=== PATIENT | female | born 1940 ===

== ENCOUNTER 2025-07-15 08:16 | Outpatient (AMB) | payer OTHER, MEDICAID, SELFPAY ==
--- OUTSIDE RECORDS SUMMARY | 2025-07-11 16:00 | XMS_ITS | Encounter Summary ---
Author Organization [facility], Address [address] [address] Phone Care Team Providers Care Management Coordinator Name Role Phone Steven Olson MD Primary Care Provider [phone] Encounter Details Date Type Department Care Team (Late st Contact Info) Description 07/11/2025 4:00 PM EDT Office Visit [facility], [address] [place] [phone] Abram Bhatti MD [address] [place] [address] [place] [phone] Stage 3 chronic kidney disease, not otherwise specified (HCC) (Primary Dx); Hypertension Social History Tobacco Use Types Packs/Day Years Used Date Smoking Tobacco: Never Alcohol Use Standard Drinks/Week Comments No 0 (1 standard drink = 0.6 oz pur e alcohol) Comments Unknown Sex and Gender Information Value Date Recorded Sex Assigned at Not on file Legal Sex Female 4:34 PM EST Gender Identity Not on file Sexual Orientation Not on file documented as of this encounter Last Filed Vital Signs Vital Sign Reading Time Taken Comments Blood Pressure 160/60 07/11/2025 3:38 PM EDT Pulse - - Temperature - - Respiratory Rate - - Oxygen Saturation - - Inhaled Oxygen Concentration - - Weight - - Height - - Body Mass Index - - documented in this encounter H&P Notes * Abram Bhatti MD - 07/11/2025 4:00 PM EDT PATIENT: Steve Franco : 1940 ENCOUNTER: 07/11/2025 PCP: Steven Olson MD Edditim Franco is a 84 y.o. 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 HPI: Doing well overall. Had an episode of acute kidney injury probably on the basis of prerenal azotemia over the summer. This is completely resolved with her creatinine coming back down to 1.3 mg/dL onSeptember 30. She has normal electrolytes. She still has anemia with a hemoglobin of 10.4 but this is stable. Her blood pressure at home has been reasonably well-controlled although was high again inthe office today at 160/60. She has no headache or dizziness and denies chest pain or shortness of breath. She has had minimal edema primarily on the right. PAST MEDICAL HISTORY: Patient Active Problem List Diagnosis Date Noted ??? Cyst of kidney 12/31/2023 ??? Hypercholesterolemia 01/27/2022 ??? Disorder of kidney and/or ureter 09/07/2021 ??? 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 ??? Chronic kidney disease stage 3 (HCC) 12/17/2019 ??? Hypertensive disorder 12/17/2019 ??? Type 2 diabetes mellitus (HCC) 12/17/2019 ROS: As above and otherwise negative She has been watching her diet and restricting sodium. MEDICATIONS: Outpatient Encounter Medications as of 07/11/2025 Medication Sig Dispense Refill ??? albuterol HFA (PROVENTIL HFA;VENTOLIN HFA) 108 (90 Base) MCG/ACT inhaler ??? allopurinol (ZYLOPRIM) 100 MG tablet Take 200 mg by mouth 1 (one) time each day ??? amLODIPine (NORVASC) 5 MG tablet Take 5 mg by mouth 1 (one) time each day ??? aspirin 81 MG tablet Comments: Patient Notes: TAKE 1 TABLET BY MOUTH DAILY Duration: 90 ??? atorvastatin (LIPITOR) 20 MG tablet Take 20 mg by mouth 1 (one) time each day ??? candesartan (ATACAND) 32 MG tablet Take 1 tablet (32 mg total) by mouth 1 (one) time each day 30 tablet 11 ??? cetirizine (ZyrTEC) 10 MG tablet Take 10 mg by mouth 1 (one) time each day if needed ??? Diclofenac Sodium 1 % gel APPLY 4 GRAMS FOUR TIMES A DAY NEEDED TO LEFT BUTTOCK ??? escitalopram (LEXAPRO) 10 MG tablet Take 10 mg by mouth 1 (one) time each day ??? fluticasone (FLONASE) 50 MCG/ACT nasal spray USE 1 SPRAY IN EACH NOSTRIL 2 TIMES A DAY, IF NEEDED. ??? mometasone (ELOCON) 0.1 % cream APPLY TWO TIMES A DAY ON RASH FOR 10 DAYS ??? omeprazole (PriLOSEC) [address] capsule Take 20 mg by mouth 1 (one) time each day ??? spironolactone (ALDACTONE) 25 MG tablet Take 25 mg by mouth 1 (one) time each day No facility-administered encounter medications on file as of 07/11/2025. PHYSICAL EXAM: BP 160/60 Constitutional: No apparent distress Cardiovascular: No JVD elevation; no rub; regular Pulmonary/Chest: No rales; no wheeze Abdominal: Soft and non-tender. Extremities: Edema trace LABS: Chemistry Lab Units 06/28/25 0819 06/28/25 0818 05/09/25 0817 04/28/25 1517 04/26/25 1708 02/24/25 0738 12/13/24 1204 10/15/24 0629 10/14/24 1414 08/03/24 1013 08/03/24 1013 08/12/23 0808 CREATININE mg/dL -- 1.35* 1.44* -- 1.81* 1.48* 1.4* 1.29* 1.34* < > 1.56* 1.1* BUN mg/dL -- 24 29* -- 24 33* 26* 23 25 < > 40* 16 POTASSIUM mmol/L -- 5.0 5.0 -- 5.3 5.3 -- 4.4 4.5 < > 5.4 4.0 SODIUM mmol/L -- 136 128* -- 135 139 -- 136 135 < > 129* 140 CO2 mmol/L -- 22 20 -- 27 26 -- 26 28 < > 27 31* CHLORIDE mmol/L -- 103 93* -- 105 109 -- 106 103 < > 96 102 ALBUMIN g/dL -- 4.1 4.0 -- -- -- -- -- 3.8 -- 3.9 4.1 EGFRNAFR ML/MIN/1.73 M2 -- -- -- -- -- -- -- -- -- -- -- 50 HEMOGLOBIN A1C % -- -- -- 6.4 -- -- -- -- -- -- -- -- WBC AUTO x10E3/uL 4.7 -- 6.1 -- -- -- -- -- -- -- -- 5.6 HEMATOCRIT % 35.7 -- 33.6* -- -- -- -- -- -- -- -- 39.6 HEMOGLOBIN g/dL 10.4* -- 10.7* -- -- -- -- -- -- -- -- 11.9 PLATELETS AUTO x10E3/uL 182 -- 210 -- -- -- -- -- -- -- -- 199 < > = values in this interval not displayed. Bone Mineral Lab Units 06/28/25 0818 05/09/25 0817 04/26/25 1708 02/24/25 0738 10/15/24 0629 10/14/24 1414 08/03/24 1013 08/03/24 1013 08/12/23 0808 CALCIUM mg/dL 9.1 9.6 9.3 9.4 9.8 9.9 < > 10.2 10.5 PHOSPHORUS mg/dL 3.1 3.3 -- -- -- -- -- 3.9 3.3 ALK PHOS unit/L -- -- -- -- -- 118 -- -- -- PTH pg/mL 79* -- -- -- -- -- -- -- -- < > = values in this interval not displayed. DOCUMENTATION REVIEW: I have reviewed the applicable outside notes located in the chart, in [facility] and in Care Everywhere. SUMMARY: Based on the above findings, my interpretation of the available data, and my best efforts to reconcile the active medications, the following problems/diagnoses with recommendations for any further testing, treatment options, and follow-up are provided for your review: Chronic and Active Issues: 1. Stage 3 chronic kidney disease, not otherwise specified (HCC) 2. Hypertension Mrs. 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 Her cyst has now been stable for multiple years and likely no longer requires her regular follow-up. Her kidney function remains stable with a creatinine 1.3 mg/dl. Her blood pressure has been stable at home. It was high in the office. Have asked her to continue to work on her diet, exercise, weight loss. This has helped her in the past. I made no changes in her medicationsfor now. If her blood pressure is high at home she will give me a call and we can make adjustments accordingly. Otherwise, I will see her back in 4 to 6 months. Abram Bhatti MD documented in this encounter Plan of Treatment Upcoming Encounters Date Type Department Care Team (Late st Contact Info) Description 11/25/2025 2:00 PM EST Office Visit [facility], [address] [place] [address] Abram Bhatti MD [address] [facility] [place] [phone] documented as of this encounter Visit Diagnoses Diagnosis Stage 3 chronic kidney disease, not otherwise specified (HCC)- Primary Hypertension documented in this encounter Care Teams Management Coordinator Relationship Specialty Start Date End Date Steven Olson MD [address] [place] [id number] PCP - General 08/03/19 documented as of this encounter
--- OUTSIDE RECORDS SUMMARY | 2025-07-15 08:32 | XMS_ITS | Continuity of Care Document ---
Author Name [facility], Medical Address [address] [place] [address] Organization Unknown Address [address] [place] [address] Medications No known medications Problems No known problems
--- OUTSIDE RECORDS SUMMARY | 2025-07-15 08:32 | XMS_ITS | Encounter Summary ---
Author Organization [facility] Address [address] [place] [address] Care Team Providers Care Mesh Worker Name Role Phone Yolanda Parrish Primary Care Provider + Encounter Details Date Type Department Care Team (Late st Contact Info) Description 06/16/2025 Telephone Internal Medicine - [place] [address] [facility] [address] [place] [phone] Yolanda Parrish PA [address] [facility] [address] [place] [address] Social History Tobacco Use Types Packs/Day Years Used Date Smoking Tobacco: Former Cigarettes Q uit: 01/18/1999 Smokeless Tobacco: Never Alcohol Use Standard Drinks/Week Comments Not Currently 0 (1 standard drink = 0.6 oz pur e alcohol) Interpersonal Safety Answer Date Record ed Physical Abuse Unrecognized value 10/14/2024 Verbal Abuse Unrecognized value 10/14/2024 Comments No Sex and Gender Information Value Date Recorded Sex Assigned at Female 10/14/2024 3:37 PM EST Legal Sex Female 10:03 AM EST Gender Identity Female 10/14/2024 3:37 PM EST Sexual Orientation Choose not to disclose 2024 3:37 PM EST documented as of this encounter Functional Status * Are you deaf or do you have serious difficulty hearing? Answer Date of Assessment Author No 04/26/2025 5:00 PM EDT Antonette Mcclain RN * Are you blind or do you have serious difficulty seeing, even when wearing glasses? Answer Date of Assessment Author No 04/26/2025 5:00 PM EDT Antonette Mcclain RN * Do you have serious difficulty walking or climbing stairs? Answer Date of Assessment Author No 04/26/2025 5:00 PM EDT Antonette Mcclain RN * Do you have serious difficulty dressing or bathing? Answer Date of Assessment Author No 04/26/2025 5:00 PM EDT Antonette Mcclain RN * Because of a physical, mental, or emotional condition, do you have serious difficulty doing errandsalone such as visiting the doctor? Answer Date of Assessment Author No 04/26/2025 5:00 PM EDT Antonette Mcclain RN documented as of this encounter Mental Status * Because of a physical, mental, or emotional condition, do you have serious difficulty concentrating, remembering, or making decisions? (5 years old or older) Answer Entry Date Author No 04/26/2025 5:00 PM EDT Antonette Mcclain RN documented in this encounter Plan of Treatment Upcoming Encounters Date Type Department Care Team (Late st Contact Info) Description 07/19/2025 10:00 AM EDT Office Visit Pulmonology - [place] [address] [phone] Fabio Marquez MD [address] [place] [phone] 09/01/2025 10:30 AM EST Office Visit Internal Medicine - [place] [address] [phone] Yolanda Parrish PA [address] [facility] 200 [place] [address] 09/05/2025 7:40 AM EST Office Visit [facility] [address] [facility] [address] [place] [phone] Jaguar Smith NP [address] [place] [address] 12/21/2025 10:00 AM EDT Ancillary Procedure [facility] [address] [facility] 101 [place] [address] 01/23/2026 8:30 AM EDT Office Visit Vascular Surgery - [place] [address] [facility] [address] [place] [address] Pelon Joshi MD [address] [place] [phone] 04/07/2026 10:00 AM EDT Office Visit [facility] H[facility]ology Oncology [address] [place] [phone] Jennifer-Quinn Heredia MD [address] [place] [phone] documented as of this encounter Visit Diagnoses Not on filedocumented in this encounter Care Teams Mesh Worker Relationship Specialty Start Date End Date Yolanda Parrish PA [address] [facility] 200 [place] [address] PCP - General Primary Care 08/03/24 documented as of this encounter
--- OUTSIDE RECORDS SUMMARY | 2025-07-15 08:32 | XMS_ITS | Clinical Summary ---
Author Organization [facility], Address [address] [place] [address] Phone Care Team Providers Care Fitting Room Inspector Name Role Phone Steven Olson MD Primary Care Provider [phone] Allergies No known active allergies Medications aspirin 81 MG tablet Comments: Patient Notes: TAKE 1 TABLET BY MOUTH DAILY Duration: 90 Active escitalopram (LEXAPRO) 10 MG tablet Take 10 mg by mouth 1 (one) time each day 08/27/2021 Active Diclofenac Sodium 1 % gel APPLY 4 GRAMS FOUR TIMES A DAY NEEDED TO LEFT BUTTOCK 07/09/2021 Active amLODIPine (NORVASC) 5 MG tablet Take 5 mg by mouth 1 (one) time each day 09/06/2021 Active allopurinol (ZYLOPRIM) 100 MG tablet Take 200 mg by mouth 1 (one) time each day 12/25/2021 Active cetirizine (ZyrTEC) 10 MG tablet Take 10 mg by mouth 1 (one) time each day if needed 12/08/2021 Active fluticasone (FLONASE) 50 MCG/ACT nasal spray USE 1 SPRAY IN EACH NOSTRIL 2 TIMES A DAY, IF NEEDED. 07/02/2022 Active albuterol HFA (PROVENTIL HFA;VENTOLIN HFA) 108 (90 Base) MCG/ACT inhaler 08/11/2022 Active mometasone (ELOCON) 0.1 % cream APPLY TWO TIMES A DAY ON RASH FOR 10 DAYS 06/03/2023 Active omeprazole (PriLOSEC) [address] capsule Take 20 mg by mouth 1 (one) time each day 07/04/2023 Active atorvastatin (LIPITOR) 20 MG tablet Take 20 mg by mouth 1 (one) time each day Active spironolactone (ALDACTONE) 25 MG tablet Take 25 mg by mouth 1 (one) time each day Active candesartan (ATACAND) 32 MG tablet Take 1 tablet (32 mg total) by mouth 1 (one) time each day 30 tablet 11 10/05/2024 Active Active Problems Problem Noted Date Diagnosed Date Cyst of kidney 12/31/2023 Hypercholesterolemia 01/27/2022 Disorder of kidney and/or ureter 09/07/2021 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 Chronic kidney disease stage 3 12/17/2019 Hypertensive disorder 12/17/2019 Type 2 diabetes mellitus 12/17/2019 Resolved Problems Problem Noted Date Diagnosed Date Resolved Date Malignant tumor of breast 01/27/2022 Overview (01/27/2022): stage II-A infiltrating ductal CA; ER and NM (+) Morbid obesity 01/27/2022 01/27/2022 Tubular adenoma, no ICD-O subtype 01/27/2022 01/27/2022 Encounters Date Type Department Care Team Description 07/11/2025 4:00 PM EDT Office Visit [facility] [address] [place] [address] Abram Bhatti MD Stage 3 chronic kidney disease, not otherwise specified (HCC) (Primary Dx); Hypertension 06/28/2025 Orders Only [facility] [address] [place] [address] Dayna Samuel MA Hypertension (Primary Dx); Stage 3 chronic kidney disease, not otherwise specified (HCC); Albuminuria, not otherwise specified 05/12/2025 Orders Only [facility] [place] [address] [place] [phone] Abram Bhatti MD Chronic kidney disease stage 3 (HCC) (Primary Dx); Hypertension 05/11/2025 Telephone [facility] [address] [place] [phone] Dayna Samuel MA 05/06/2025 Orders Only [facility] [address] [place] [phone] Abram Bhatti MD Chronic kidney disease stage 3 (HCC) (Primary Dx); Hypertensive disorder 05/05/2025 Telephone [facility] [place], [address] [place] [address] Dayna Samuel MA from Last 3 Months Family History Medical History Relation Comments Heart disease Mother Cancer Sibling BREAST CANCER Heart disease Sibling sister Relation Status Comments Father Mother Sibling Social History Tobacco Use Types Packs/Day Years Used Date Smoking Tobacco: Never Alcohol Use Standard Drinks/Week Comments No 0 (1 standard drink = 0.6 oz pur e alcohol) Comments Unknown Sex and Gender Information Value Date Recorded Sex Assigned at Not on file Legal Sex Female 4:34 PM EST Gender Identity Not on file Sexual Orientation Not on file Last Filed Vital Signs Vital Sign Reading Time Taken Comments Blood Pressure 160/60 07/11/2025 3:38 PM EDT Pulse - - Temperature - - Respiratory Rate - - Oxygen Saturation - - Inhaled Oxygen Concentration - - Weight 97.5 kg (215 lb) 06/08/2018 12:00 PM EDT Height 167.6 cm (5' 6 ) 06/08/2018 12:00 PM EDT Body Mass Index 34.7 06/08/2018 12:00 PM EDT Plan of Treatment Upcoming Encounters Date Type Department Care Team (Late st Contact Info) Description 11/25/2025 2:00 PM EST Office Visit [facility] [place], [address] [place] [address] Abram Bhatti MD [address] [place] [phone] Health Maintenance Due Date Last Done Comments Pneumococcal Vaccine: 50+ Years (1 of 2 - PCV) 1959 Diabetes: Ophthalmology Exam 12/17/2019 Diabetes: Pedal Pulse Checked 12/17/2019 Diabetes: Sensory Foot Exam 12/17/2019 Diabetes: Visual Foot Exam 12/17/2019 Influenza Vaccine (#1) 2025 07/13/2021 Diabetes: Hemoglobin A1C 07/29/2025 025, 04/28/2025, 09/08/2017 Hepatitis B Vaccine Aged Out No longe r eligible based on patient's age to complete this topic Procedures Procedure Name Priority Date/Time Associated Diagnosis Comments PROTEIN / CREATININE RATIO, URINE Routine 06/28/2025 8:19 AM EDT CBC AND DIFFERENTIAL Routine 06/28/2025 8:19 AM EDT Hypertension Stage 3 chronic kidney disease, not otherwise specified (HCC) Albuminuria, not otherwise specified URINE ALBUMIN / CREATININE RATIO Routine 06/28/2025 8:18 AM EDT Hypertension Stage 3 chronic kidney disease, not otherwise specified (HCC) Albuminuria, not otherwise specified RENAL FUNCTION PANEL Routine 06/28/2025 8:18 AM EDT Hypertension Stage 3 chronic kidney disease, not otherwise specified (HCC) Albuminuria, not otherwise specified KAPPA/LAMBDA FREE LT CHAINS W/RATIO Routine 06/28/2025 8:18 AM EDT Chronic kidney disease stage 3 (HCC) Hypertension IMMUNOFIXATION ELECTROPHORESIS Routine 06/28/2025 8:18 AM EDT Chronic kidney disease stage 3 (HCC) Hypertension KALEY, URINE Routine 06/28/2025 8:18 AM EDT Chronic kidney disease stage 3 (HCC) Hypertension URINALYSIS WITH MICROSCOPIC Routine 06/28/2025 8:18 AM EDT Chronic kidney disease stage 3 (HCC) Hypertension PTH, INTACT Routine 06/28/2025 8:18 AM EDT Chronic kidney disease stage 3 (HCC) Hypertension MICROSCOPIC EXAMINATION - DO NOT USE Routine 06/28/2025 8:18 AM EDT PROTEIN / CREATININE RATIO, URINE Routine 05/09/2025 8:29 AM EDT IRON PANEL (FE, TIBC, TSAT) Routine 05/09/2025 8:17 AM EDT Chronic kidney disease stage 3 (HCC) Hypertensive disorder FERRITIN Routine 05/09/2025 8:17 AM EDT Chronic kidney disease stage 3 (HCC) Hypertensive disorder CBC Routine 05/09/2025 8:17 AM EDT Chronic kidney disease stage 3 (HCC) Hypertensive disorder RENAL FUNCTION PANEL Routine 05/09/2025 8:17 AM EDT Chronic kidney disease stage 3 (HCC) Hypertensive disorder LAB CLINICAL REHABILITATION LIAISON Routine 09/08/2017 12:00 AM EST from Last 3 Months or Most Recently Relevant to Health Maintenance Results * Protein, Total, Random Urine w/Creatinine (Protein/Creat Ratio) (06/28/2025 8:19 AM EDT) Only the most recent of2 resultswithin the time period is included. Creatinine, Ur 132.8 Not Estab. mg/dL [facility] Protein, Ur 23.0 Not Estab. mg/dL [facility] Urine Protein/Creatin ine Ratio 173 0 - 200 mg/g creat [facility] 06/28/2025 8:19 AM EDT 06/28/2025 us Abram Bhatti MD LAB URINE ORDERABLES Final Result [facility] [address] [place] [address] * (ABNORMAL) CBC and Differential (06/28/2025 8:19 AM EDT) WBC 4.7 3.4 - 10.8 x10E3/uL [facility] RBC 3.45(L) 3.77 - 5.28 x10E6/uL [facility] Hemoglobin 10.4(L) 11.1 - 15.9 g/dL [facility] Hematocrit 35.7 34.0 - 46.6 % [facility] MCV 104(H) 79 - 97 fL [facility] MCH 30.1 26.6 - 33.0 pg [facility] MCHC 29.1(L) 31.5 - 35.7 g/dL [facility] RDW 13.9 11.7 - 15.4 % [facility] Platelets 182 150 - 450 x10E3/uL [facility] Neutrophils Relative 43 Not Estab. % [facility] Lymphocytes Relative 40 Not Estab. % [facility] Monocytes 12 Not Estab. % [facility] Eosinophils Relative 4 Not Estab. % [facility] Basophils Relative 1 Not Estab. % [facility] Neutrophils Absolute 2.0 1.4 - 7.0 x10E3/uL [facility] Lymphocytes Absolute 1.9 0.7 - 3.1 x10E3/uL [facility] Monocytes Absolute 0.5 0.1 - 0.9 x10E3/uL [facility] Eosinophils Absolute 0.2 0.0 - 0.4 x10E3/uL [facility] Basophils Absolute 0.0 0.0 - 0.2 x10E3/uL [facility] Immature Granulocytes 0 Not Estab. % [facility] Immature Grans (Absolute) 0.0 0.0 - 0.1 x10E3/uL [facility] Blood Venous blood / Unknown 06/28/2025 8:19 AM EDT 06/28/2025 Abram Bhatti MD LAB BLOOD ORDERABLES Final Result [facility] [address] [place] [address] * Urine Immunofixation Electrophoresis (06/28/2025 8:18 AM EDT) KALEY Interpretation:U Comment [facility] Comment: The immunofixation pattern appears unremarkable. Evidence of monoclonal protein is not apparent. Urine 06/28/2025 8:18 AM EDT 06/28/2025 Abram Bhatti MD LAB URINE ORDERABLES Final Result Performing Organization Address City/[facility]/ZIP Co de Phone Number [facility] [address] [place] [address] * Microscopic Examination (06/28/2025 8:18 AM EDT) WBC, Urine None seen 0 - 5 /hpf [facility] RBC, Urine None seen 0 - 2 /hpf [facility] Squamous Epithelial, Urine 0-10 0 - 10 /hpf [facility] Casts None seen None seen /lpf [facility] Bacteria, Urine None seen None seen/Few [facility] 06/28/2025 8:18 AM EDT 06/28/2025 Result [facility] Abram Bhatti MD LAB MICROBIOLOGY - GENERAL ORDERABLES Final Result Performing Organization Address [facility] Co de Phone Number [facility] [address] [place] [address] * (ABNORMAL) Serum free light chains (06/28/2025 8:18 AM EDT) Free [place] Lt Chains, S 35.3(H) 3.3 - 19.4 mg/L [facility] Free Lambda Lt Chains, S 30.5(H) 5.7 - 26.3 mg/L [facility] Free [place]/Lambda Ratio 1.16 0.26 - 1.65 [facility] Blood Venous blood / Unknown 06/28/2025 8:18 AM EDT 06/28/2025 Abram Bhatti MD LAB BLOOD ORDERABLES Final Result Performing Organization Address [facility] de Phone Number [facility] [address] [place] [address] * (ABNORMAL) Urine Albumin / Creatinine Ratio (06/28/2025 8:18 AM EDT) Creatinine, Ur 134.1 Not Estab. mg/dL [facility] Albumin, Urine 76.5 Not Estab. ug/mL [facility] Albumin/Creatin ine Ratio 57(H) 0 - 29 mg/g creat [facility] Comment: Normal: 0 - 29 Moderately increased: 30 - 300 Severely increased: >300 Urine Urine specimen obtained by clean catch procedure / Unknown 06/28/2025 8:18 AM EDT 06/28/2025 Abram Bhatti MD LAB URINE ORDERABLES Final Result Performing Organization Address City/[facility]/ZIP Co de Phone Number [facility] [address] [place] [address] * (ABNORMAL) Urinalysis with microscopic (06/28/2025 8:18 AM EDT) Pathologist [facility] Specific Noonan, Urine 1.016 1.005 - 1.030 [facility] pH Urine 6.0 5.0 - 7.5 [facility] [phone] Color, Urine Yellow Yellow [facility] [phone] Appearance Urine Clear Clear [facility] WBC Esterase Urine Negative Negative [facility] Protein, Ur 1+(A) Negative/Tra ce [facility] Glucose, Ur Negative Negative [facility] [phone] Ketones, Urine Negative Negative [facility] Blood Urine Negative Negative [facility] Bilirubin Urine Negative Negative [facility] [phone] Urobilinogen Urine 0.2 0.2 - 1.0 mg/dL [facility] Nitrite, Urine Negative Negative [facility] Microscopic Examination See below: [facility] Comment:Microscopic was alia cated and was performed. Urine Urine specimen obtained by clean catch procedure / Unknown 06/28/2025 8:18 AM EDT 06/28/2025 us Abram Bhatti MD LAB URINE ORDERABLES Final Result [facility] [address] [place] [address] * Immunofixation, Serum (06/28/2025 8:18 AM EDT) IgG 1,229 586 - 1,602 mg/dL [facility] IgA 315 64 - 422 mg/dL [facility] IgM 35 26 - 217 mg/dL [facility] Immunofixation Result, Serum Comment [facility] Comment: The immunofixation pattern appears unremarkable. Evidence of monoclonal protein is not apparent. Blood Venous blood / Unknown 06/28/2025 8:18 AM EDT 06/28/2025 Abram Bhatti MD LAB BLOOD ORDERABLES Final Result [facility] [address] [place] [address] * (ABNORMAL) PTH, intact (06/28/2025 8:18 AM EDT) PTH 79(H) 15 - 65 pg/mL [facility] Blood Venous blood / Unknown 06/28/2025 8:18 AM EDT 06/28/2025 Abram Bhatti MD LAB BLOOD ORDERABLES Final Result Performing Organization Address City/[facility]/ZIP Co de Phone Number [facility] [address] [place] [address] * (ABNORMAL) Renal Function Panel (06/28/2025 8:18 AM EDT) Only the most recent of2 resultswithin the time period is included. Glucose 92 70 - 99 mg/dL [facility] BUN 24 8 - 27 mg/dL [facility] Creatinine 1.35(H) 0.57 - 1.00 mg/dL [facility] eGFR CKD-EPI CR 2020 39(L) >59 mL/min/1.7 3 [facility] BUN/Creatinine Ratio 18 12 - 28 [facility] Sodium 136 134 - 144 mmol/L [facility] Potassium 5.0 3.5 - 5.2 mmol/L [facility] Chloride 103 96 - 106 mmol/L [facility] Bicarbonate (CO2) 22 20 - 29 mmol/L [facility] Calcium 9.1 8.7 - 10.3 mg/dL [facility] Albumin 4.1 3.7 - 4.7 g/dL [facility] Phosphorus 3.1 3.0 - 4.3 mg/dL [facility] Blood Venous blood / Unknown 06/28/2025 8:18 AM EDT 06/28/2025 Abram Bhatti MD LAB BLOOD ORDERABLES Final Result [facility] [address] [place] [address] * Iron Panel (Fe, TIBC, TSAT) (05/09/2025 8:17 AM EDT) TIBC 290 250 - 450 ug/dL [facility] UIBC 226 118 - 369 ug/dL [facility] Iron 64 27 - 139 ug/dL [facility] Iron Saturation (TSat) 22 15 - 55 % [facility] Blood Venous blood / Unknown 05/09/2025 8:17 AM EDT 05/09/2025 Abram Bhatti MD LAB BLOOD ORDERABLES [facility] [address] [place] [address] * (ABNORMAL) CBC (05/09/2025 8:17 AM EDT) WBC 6.1 3.4 - 10.8 x10E3/uL [facility] RBC 3.36(L) 3.77 - 5.28 x10E6/uL [facility] Hemoglobin 10.7(L) 11.1 - 15.9 g/dL [facility] Hematocrit 33.6(L) 34.0 - 46.6 % [facility] MCV 100(H) 79 - 97 fL [facility] MCH 31.8 26.6 - 33.0 pg [facility] MCHC 31.8 31.5 - 35.7 g/dL [facility] RDW 12.9 11.7 - 15.4 % [facility] Platelets 210 150 - 450 x10E3/uL [facility] Blood Venous blood / Unknown 05/09/2025 8:17 AM EDT 05/09/2025 Abram Bhatti MD LAB BLOOD ORDERABLES Final Result [facility] [address] [place] [address] * (ABNORMAL) Ferritin (05/09/2025 8:17 AM EDT) Pathologist [facility] Ferritin 507(H) 15 - 150 ng/mL [facility] Blood Venous blood / Unknown 05/09/2025 8:17 AM EDT 05/09/2025 Abram Bhatti MD LAB BLOOD ORDERABLES Final Result [facility] [address] [place] [address] from Last 3 Months Insurance [place] Care Teams Fitting Room Inspector Relationship Specialty Start Date End Date Steven Olson MD [address] [place] [address] PCP - General 08/03/19
--- OUTSIDE RECORDS SUMMARY | 2025-07-15 08:32 | XMS_ITS | Encounter Summary ---
Author Organization [facility] Address [address] [place] [address] Care Team Providers Care Environmental Laboratory Technician Name Role Phone Yolanda Parrish Primary Care Provider + Reason for Referral * Consultation (Routine) - Authorized Specialty Diagnoses / Procedures Referred By Contbenjie t Referred To Contact Pulmonary Disease / Pulmonology Diagnoses Other fatigue Yolanda Parrish PA [address] [address] Phone: tel: fax: Fabio Marquez MD [address] [address] Phone: tel: fax: Referral ID Status Reason Start Date Expiration Date Visits Requested Visits Authorized [id number] Authorized Specialty Services Required 07/13/2026 12 12 Reason for Visit * Reason Onset Date Comments Referral/ Pulmonology 07/13/2025 Encounter Details Date Type Department Care Team ([facility] st Contact Info) Description 07/13/2025 Telephone Internal Medicine - [place] [address] [phone] Yolanda Parrish PA [address] [facility] [address] [place] [address] Social History Tobacco Use Types Packs/Day Years [...] 10:00 AM EDT Office Visit Pulmonology - [place] 175 [facility] [address] [place] [phone] Fabio Marquez MD [address] [place] [phone] 09/01/2025 10:30 AM EST Office Visit Internal Medicine - [place] 175 [facility] [address] [place] [phone] Yolanda Parrish PA 175 [facility] [address] [place] [address] 09/05/2025 7:40 AM EST Office Visit [facility] - [facility] 154 [address] [facility] [address] [place] [phone] Jaguar Smith NP [address] [place] [address] 12/21/2025 10:00 AM EDT Ancillary Procedure [facility] - [facility] 101 300 [facility] 101 [place] [phone] 01/23/2026 8:30 AM EDT Office Visit Vascular Surgery - [place] 300 [facility] [address] [place] [address] Pelon Joshi MD [address] [place] [phone] 04/07/2026 10:00 AM EDT Office Visit [facility] Hematology Oncology [address] [place] [phone] Quinn Seals MD [address] [place] [phone] Scheduled Referrals Name Type Priority Associated Diagnoses Order Schedule Ambulatory referral to Pulmonology Outpatient Referral Routine Other fatigue Expected: 07/13/2025, Expires: 07/13/2026 documented as of this encounter Visit Diagnoses Diagnosis Other fatigue- Primary documented in this encounter Care Teams Environmental Laboratory Technician Relationship Specialty Start Date End Date Yolanda Parrish PA [address] [address] PCP - General Primary Care 08/03/24 documented as of this encounter
--- OUTSIDE RECORDS SUMMARY | 2025-07-15 08:33 | XMS_ITS | Encounter Summary ---
Author Organization [facility], Address [address] [facility] [place] [address] Phone Care Team Providers Care Steel Placer Name Role Phone Steven Olson MD Primary Care Provider [phone] Encounter Details Date Type Department Care Team (Late Contact Info) Description 08/04/2024 Documentation Only [facility] [address] [place] [address] [place], [place] [address] [place] [address] Social History Tobacco Use Types Packs/Day Years [...] on file documented as of this encounter Plan of Treatment Upcoming Encounters Date Type Department Care Team (Late Contact Info) Description 11/25/2025 2:00 PM EST Office Visit [facility] [address] [place] [address] Abram Bhatti MD [address] [place] [address] documented as of this encounter Visit Diagnoses Not on filedocumented in this encounter Care Teams Steel Placer Relationship Specialty Start Date End Date Steven Olson MD [address] [place] [address] PCP - General 08/03/19 documented as of this encounter
--- OUTSIDE RECORDS SUMMARY | 2025-07-15 08:33 | XMS_ITS | Encounter Summary ---
Author Organization [facility], Address [address] [facility] [place] [address] Phone Care Team Providers Care Master Pilot Name Role Phone Steven Olson MD Primary Care Provider [phone] Encounter Details Date Type Department Care Team (Late Contact Info) Description 08/06/2024 Documentation Only [facility] [address] [place] [address] [place] [address] [place] [address] Social History Tobacco Use Types [...] Visit [facility] [address] [place] [address] Abram Bhatti MD [address] [facility] [address] [place] [address] documented as of this encounter Visit Diagnoses Not on filedocumented in this encounter Care Teams Master Pilot Relationship Specialty Start Date End Date Steven Olson MD [address] [place] [address] PCP - General 08/03/19 documented as of this encounter
--- OUTSIDE RECORDS SUMMARY | 2025-07-15 08:33 | XMS_ITS | Patient Health Record ---
Author Organization Merged With [facility] Kira [place] Address [address] [place] [address] Care Team Providers Care Digital Archivist Name Role Phone Wesley ESQUEDA, Steven Primary Care Provider Unavailab le Agustina Otoole Unavailable [phone] Allergies Allergen (clinical drug ingredient) Drug/Non Drug Allergy documented on EMR Reaction Allergy Type Onset Date Status Shrimp Flavor Unknown Drug Allergy Act ondina Seasonal IC Unknown Drug Allergy Activ e Shellfish (FN) Shellfish-derived Products Unknown Drug Allergy Active Results Component Value Reference Range Notes HEMOGLOBIN A1C (GLYCOHEMOGLO BIN) Reviewed date:12/10/2024 09:25:12 AM Interpretation: Performing Lab: Notes/Report: HEMOGLOBIN A1C % (HH) 6.5 HEMOGLOBIN A1C (GLYCOHEMOGLO BIN) Reviewed date:06/08/2025 09:09:21 AM Interpretation: Performing Lab: Notes/Report: HEMOGLOBIN A1C % (HH) 6.4 Reason For Referral Diagnosis 1 Type 2 diabetes jacquelyn itus with diabetic polyneuropathy (E11.42) Diagnosis 2 Tinea unguium (B35.1 ) Diagnosis 3 Pain in Limb (729.5) Diagnosis 4 Other viral warts (B 07.8) Diagnosis 5 Hammer toe (735.4) Diagnosis 6 Ingrowing nail (L60. 0) Referring Provider First Name Steven Referring Provider Last Name Wesley Referred Organization [facility] Vic[facility] Referred Provider Agustina Otoole Referred Address [address] [facility],[place], [place],[address], Referred Provider Specialty Podiatry Referral Priority Routine Medications Medication SIG (Take, Route, Frequency, Duration) Notes Start Date End Date Status Allopurinol 100 MG 1 tablet Orally Once a day Active hydroCHLOROthiazide Not-Taking Aspirin 81 mg Active Simvastatin 20 MG TAKE ONE TABLET(S) EVERY DAY Oral; Duration: 30 Not-Taking Eucerin . as directed Externally bid; Duration: 30 days Not-Taking Spironolactone Activ e predniSONE 20 MG 2 tablets with food or milk Orally Once a day; Duration: 5 days 11/27/2021 Not-Taking Atorvastatin Calcium 20 MG 1 tablet Oral ly Once a day Active Extra Depth Orthopedic Shoes (1 Pair) with Customized Heat Molded Multidensity Innersoles (3 Pair) as directed Dx: NIDDM/Polyneuropathy (E11.42), Hammertoe Foot Deformity (M20.41,M20.42), Preulcerative Skin Lesion(s) (L85.1 12/10/2024 Active Loratadine Active amLODIPine Besylate 5 MG 1 tablet Orally Once a day Active Vitamin D Active Cetirizine HCl Activ e Aromasin Not-Taking Candesartan Cilexetil Active Escitalopram Oxalate 10 MG 1 tablet Oral ly Once a day Not-Taking Aspirin 81 81 MG 1 tablet Orally Once a day Active glipiZIDE Not-Taking Immunizations Vaccine Route Administration Date Status Comme nts Influenza Unknown 09/12/2015 Refused Influenza Unknown 09/03/2016 Refused Influenza Unknown 09/02/2017 Refused Influenza Unknown 09/08/2018 Refused Influenza Unknown 11/05/2019 Refused Influenza Unknown 07/13/2021 Administered Influenza Unknown 01/30/2022 Refused Influenza Unknown 03/09/2025 Refused Pneumococcal Unknown 09/12/2015 Refused COVID-19 Pfizer BioNTech Vaccine Unknown 07/16/2021 Administered 1st vaccine 11/09/20 2nd dose: 11/30/2020 Social History Tobacco Use: Social History Observation Description Date Details (start date - stop date) Never Smoker NA - NA Tobacco use other than smoking: Question Answer Notes Are you an other tobacco user? No Tobacco Control (Standard) Question Answer Notes Tobacco use: Nonsmoker Additional Findings: Tobacco non-user Current no nsmoker AUDIT-C (Standard) Question Answer Notes Did you have a drink containing alcohol in the p ast year? No Points 0 Interpretation Negative Section Notes: Flu shot- pt denied Eye Exam February 2015 Flu shot- pt denied Eye Exam February 2015 Flu shot- pt denied Eye Exam February 2015 Flu shot- pt denied Eye Exam February 2015 Flu shot- pt denied Eye Exam February 2015 Flu shot- pt denied Eye Exam February 2015 Flu shot- pt denied Eye Exam February 2015 Flu shot- pt denied Eye Exam February 2015 Flu shot- pt denied Eye Exam February 2015 Flu shot- pt denied Eye Exam February 2015 Flu shot- pt denied Eye Exam February 2015 Flu shot- pt denied Eye Exam February 2015 Flu shot- pt denied Eye Exam February 2015 Flu shot- pt denied Eye Exam February 2015 Flu shot- pt denied Eye Exam February 2015 Flu shot- pt denied Eye Exam February 2015 Flu shot- pt denied Eye Exam February 2015 Flu shot- pt denied Eye Exam February 2015 Flu shot- pt denied Eye Exam February 2015 Flu shot- pt denied Eye Exam February 2015 Flu shot- pt denied Eye Exam February 2015 Flu shot- pt denied Eye Exam February 2015 Flu shot- pt denied Eye Exam February 2015 Flu shot- pt denied Eye Exam February 2015 Problems Problem Type SNOMED Code ICD Code Onset Dates Problem Status W/U Status Risk Notes Problem Polyneuropathy due to type 2 diabetes mellitus (542102426) Type 2 diabetes mellitus with diabetic polyneuropathy (E11.42) Active confirmed Vital Signs Blood pressure diastolic 60 mm Hg 06/08/2025 Height 5 ft 6 in in 06/08/2025 Blood pressure systolic 125 mm Hg 06/08/2025 Weight 205 lbs 06/08/2025 BMI 33.08 kg/m2 06/08/2025 Procedures Procedure Date Ordered Date Performed Result Body Sit e 82345-KGZJCQM NAIL, 6 OR MORE 09/10/2024 N/A 81673-QLDR SKIN LESIONS, OVER 4 09/10/2024 N/A 65262-SPQCTBP NAIL, 6 OR MORE 12/10/2024 N/A 69180-ASVM SKIN LESIONS, OVER 4 12/10/2024 N/A 08844-QIUFWGP NAIL, 6 OR MORE 03/09/2025 N/A 37493-ARUM SKIN LESIONS, OVER 4 03/09/2025 N/A 26174-LXMDQJK NAIL, 6 OR MORE 06/08/2025 N/A 16082-FOBL SKIN LESIONS, OVER 4 06/08/2025 N/A Encounters Encounter Location Date Provider Diagnosis [address] [address] 09/10/2024 Agustina Black Type 2 diabetes jacquelyn itus with diabetic polyneuropathy E11.42 and Tinea unguium B35.[address] [address] 12/10/2024 Agustina Black Type 2 diabetes jacquelyn itus with diabetic polyneuropathy E11.42 ; Tinea unguium B35.1 ; Other hammer toe(s) (acquired), right foot M20.41 and Other hammer toe(s) (acquired), left foot M20.[address] [address] 03/09/2025 Agustina Black Type 2 diabetes jacquelyn itus with diabetic polyneuropathy E11.42 and Tinea unguium B35.[address] [address] 06/08/2025 Agustina Black Type 2 diabetes jacquelyn itus with diabetic polyneuropathy E11.42 and Tinea unguium B35.1 Assessments Encounter Date Diagnosis (ICD Code) Assessment Notes Treatment Notes Treatment Clinical Notes Section Notes 09/10/2024 Tinea unguium (ICD-10 - B35.1) 09/10/2024 Type 2 diabetes mellitus with diabetic polyneuropathy (ICD-10 - E11.42) 12/10/2024 Type 2 diabetes mellitus with diabetic polyneuropathy (ICD-10 - E11.42) 03/09/2025 Tinea unguium (ICD-10 - B35.1) 03/09/2025 Type 2 diabetes mellitus with diabetic polyneuropathy (ICD-10 - E11.42) 06/08/2025 Type 2 diabetes mellitus with diabetic polyneuropathy (ICD-10 - E11.42) 12/10/2024 Tinea unguium (ICD-10 - B35.1) 06/08/2025 Tinea unguium (ICD-10 - B35.1) 12/10/2024 Other hammer toe(s) (acquired), right foot (ICD-10 - M20.41) Patient Educated with: DIABETIC FOOT CARE INSTRUCTIONS. pdf (DIABETIC FOOT CARE INSTRUCTIONS. pdf) 12/10/2024 Other hammer toe(s) (acquired), left foot (ICD-10 - M20.42) 03/09/2025 Other Plan Of Treatment Pending Test Test Name Order Date *Uric Acid, Serum 05/05/2018 *Uric Acid, Serum 11/27/2021 Hemoglobin A1c 01/19/2015 *CBC With Differential/Platelet 05/05/20 18 *Sedimentation Rate-Westergren 8 *Sedimentation Rate-Westergren 2 C-Reactive Protein, Quant 11/27/2021 BUN, Creatinine 05/05/2018 X ray : Foot, right 3V 11/22/2021 16006-GSRJQQR NAIL, 6 OR MORE 10/31/2021 64165-VVEQYVR NAIL, 6 OR MORE 02/13/2021 08281-XBEENTE NAIL, 6 OR MORE 07/31/2021 14729-HJJALMU NAIL, 6 OR MORE 01/30/2022 29072-RSPYMEO NAIL, 6 OR MORE 05/24/2022 67819-HIVVIIF NAIL, 6 OR MORE 08/30/2022 47500-DBVDOHJ NAIL, 6 OR MORE 12/03/2022 11503-PIPOBGR NAIL, 6 OR MORE 03/05/2023 69230-TGBSVSS NAIL, 6 OR MORE 06/18/2023 90421-DJDCIUH NAIL, 6 OR MORE 10/01/2023 24508-NMQDGMP NAIL, 6 OR MORE 12/31/2023 79765-TMVQZQE NAIL, 6 OR MORE 03/26/2024 04443-QRGVOUU NAIL, 6 OR MORE 06/11/2024 23753-ANHGJPI NAIL, 6 OR MORE 09/10/2024 46173-VUDHXEC NAIL, 6 OR MORE 06/09/2018 53149-XOELCUY NAIL, 6 OR MORE 09/08/2018 14539-YBGARII NAIL, 6 OR MORE 06/03/2017 03043-RZMRCQQ NAIL, 6 OR MORE 09/02/2017 03444-IOQMJXE NAIL, 6 OR MORE 12/02/2017 47130-OYWHSUC NAIL, 6 OR MORE 03/06/2018 87551-PAIHMYQ NAIL, 6 OR MORE 12/08/2018 43336-TUTOQQK NAIL, 6 OR MORE 03/09/2019 47142-OJSZXSP NAIL, 6 OR MORE 06/11/2019 68545-YTKIZVV NAIL, 6 OR MORE 11/05/2019 58833-HUZTNSB NAIL, 6 OR MORE 02/18/2020 64347-UAFIJMD NAIL, 6 OR MORE 05/16/2020 71881-AXCEZUZ NAIL, 6 OR MORE 08/18/2020 62930-LICQLJQ NAIL, 6 OR MORE 11/21/2020 86978-QMMAWLI NAIL, 6 OR MORE 03/30/2015 85504-PMRPVRK NAIL, 6 OR MORE 06/27/2015 69753-WFCHCWU NAIL, 6 OR MORE 11/11/2013 71580-NYNSKGG NAIL, 6 OR MORE 07/21/2014 93338-JAWKQBB NAIL, 6 OR MORE 10/06/2014 93761-UQHUIHX NAIL, 6 OR MORE 01/19/2015 47216-XNVQBUC NAIL, 6 OR MORE 09/12/2015 62427-MAXJEVG NAIL, 6 OR MORE 12/05/2015 64520-FSBFTSJ NAIL, 6 OR MORE 03/05/2016 89991-ZFGLHVN NAIL, 6 OR MORE 06/04/2016 21057-EHNHQRL NAIL, 6 OR MORE 09/03/2016 50288-LLSJBZU NAIL, 6 OR MORE 12/03/2016 51541-FAUMAZK NAIL, 6 OR MORE 03/04/2017 02954-FPZFTAP NAIL, 6 OR MORE 06/06/2011 45390-JVBKKGA NAIL, 6 OR MORE 08/08/2011 26462-FJLPQQF NAIL, 6 OR MORE 10/10/2011 16620-ESNAKMS NAIL, 6 OR MORE 01/09/2012 98422-ORZKYTQ NAIL, 6 OR MORE 03/12/2012 23277-YYSBLGT NAIL, 6 OR MORE 06/11/2012 65073-UFRBHGW NAIL, 6 OR MORE 09/10/2012 92433-OBAHQQN NAIL, 6 OR MORE 11/26/2012 46056-MXJHHJI NAIL, 6 OR MORE 02/04/2013 21557-PYZSXJH NAIL, 6 OR MORE 05/06/2013 85857-TIXREWE NAIL, 6 OR MORE 08/12/2013 16011-ERZUTJU NAIL, 6 OR MORE 02/24/2014 64666-SUSVEVJ NAIL, 6 OR MORE 05/12/2014 23138-HSZIASF NAIL, 6 OR MORE 12/10/2024 56391-YRDFNSC NAIL, 6 OR MORE 03/09/2025 42803-SFCUQPA NAIL, 6 OR MORE 06/08/2025 04685-Kbiy Destruction, -05/12/2014 34421-Zpfp Destruction, 10-1202/24/2014 17343-Izdn Destruction, -08/12/2013 55384-Mbrd Destruction, -12/03/2016 64392-Zvln Destruction, 10-1209/03/2016 13819-Hyay Destruction, 10-1206/04/2016 46304-Xdzm Destruction, 10-1203/05/2016 00605-Jkmx Destruction, 10-1212/05/2015 32977-Itot Destruction, 10-1209/12/2015 37372-Upfg Destruction, 10-1201/19/2015 43893-Gxte Destruction, 10-1210/06/2014 68774-Jojf Destruction, 10-1207/21/2014 24784-Jnmo Destruction, 10-1211/11/2013 98605-Pxby Destruction, 10-1206/27/2015 51652-Umzx Destruction, 10-1203/30/2015 01372-Obnk Destruction, 10-1205/06/2013 86142-Rqzjjyqv Plate 08/12/2013 35873-Vyatfhet Plate 02/04/2013 97315-Ygfbbgro Plate 02/24/2014 13283-Xumfvhzl Plate 05/12/2014 53865-Vnmycrji Plate 09/10/2012 98088- Debride <25 sq cm 03/04/2017 39042-FLRV SKIN LESIONS, OVER 4 03/04/20 17 56886-XPOP SKIN LESIONS, OVER 4 06/03/20 17 78410-BJTX SKIN LESIONS, OVER 4 09/03/20 16 48559-MXUP SKIN LESIONS, OVER 4 12/04/19 17 96269-EGHL SKIN LESIONS, OVER 4 12/05/19 16 35391-NWJS SKIN LESIONS, OVER 4 03/05/20 16 56814-XYWO SKIN LESIONS, OVER 4 06/04/20 16 01742-SWGR SKIN LESIONS, OVER 4 03/30/20 15 22716-EWSE SKIN LESIONS, OVER 4 06/27/20 15 43249-LEOY SKIN LESIONS, OVER 4 09/12/20 15 59289-IZMI SKIN LESIONS, OVER 4 11/11/19 14 70185-MHKP SKIN LESIONS, OVER 4 07/21/20 14 45293-YONI SKIN LESIONS, OVER 4 10/06/19 15 35469-CXGF SKIN LESIONS, OVER 4 01/20/20 15 95775-LUIU SKIN LESIONS, OVER 4 06/06/20 11 26650-PHOJ SKIN LESIONS, OVER 4 11/26/19 13 35835-UFZB SKIN LESIONS, OVER 4 09/10/20 12 66700-RQUI SKIN LESIONS, OVER 4 06/11/20 12 15381-JGBK SKIN LESIONS, OVER 4 03/12/20 12 07232-GAUQ SKIN LESIONS, OVER 4 01/09/20 12 82222-ISSY SKIN LESIONS, OVER 4 08/08/20 11 95845-DLJZ SKIN LESIONS, OVER 4 10/10/19 12 40786-WIYJ SKIN LESIONS, OVER 4 05/12/20 14 27092-UEHC SKIN LESIONS, OVER 4 02/25/20 14 68835-EKQQ SKIN LESIONS, OVER 4 02/05/20 13 04704-GLXD SKIN LESIONS, OVER 4 05/06/20 13 27758-PGQT SKIN LESIONS, OVER 4 08/12/20 13 28550-ZYBH SKIN LESIONS, OVER 4 03/06/20 18 34026-MRUT SKIN LESIONS, OVER 4 12/03/19 18 68817-DVBU SKIN LESIONS, OVER 4 09/02/20 17 39430-OGII SKIN LESIONS, OVER 4 12/09/19 19 67965-CYLP SKIN LESIONS, OVER 4 09/08/20 18 15539-KAFC SKIN LESIONS, OVER 4 06/09/20 18 94926-QPIW SKIN LESIONS, OVER 4 02/14/20 21 93944-AYKQ SKIN LESIONS, OVER 4 11/21/19 21 59736-BXRV SKIN LESIONS, OVER 4 08/18/20 20 01385-XAML SKIN LESIONS, OVER 4 05/16/20 20 70367-EJJL SKIN LESIONS, OVER 4 02/18/20 20 50379-KMLO SKIN LESIONS, OVER 4 11/05/19 20 02458-FOST SKIN LESIONS, OVER 4 06/11/20 19 29037-WZZO SKIN LESIONS, OVER 4 03/09/20 19 05553-GGFE SKIN LESIONS, OVER 4 12/11/19 25 46010-QKST SKIN LESIONS, OVER 4 09/10/20 24 29717-JHAE SKIN LESIONS, OVER 4 06/11/20 24 83173-JEEL SKIN LESIONS, OVER 4 03/26/20 24 12401-RKKX SKIN LESIONS, OVER 4 12/31/19 24 71092-GJTG SKIN LESIONS, OVER 4 10/01/19 24 72637-DFOM SKIN LESIONS, OVER 4 06/18/20 23 02884-QXGO SKIN LESIONS, OVER 4 12/04/19 23 09370-MENG SKIN LESIONS, OVER 4 08/30/20 22 19167-NQTQ SKIN LESIONS, OVER 4 05/24/20 22 33057-HJTP SKIN LESIONS, OVER 4 01/31/20 22 89729-RAVI SKIN LESIONS, OVER 4 10/31/19 22 67514-KIDP SKIN LESIONS, OVER 4 07/31/20 21 84120-BRCP SKIN LESIONS, OVER 4 03/05/20 23 83376-JXBK SKIN LESIONS, OVER 4 06/08/20 25 58274-JZHP SKIN LESIONS, OVER 4 03/09/20 25 01710-CKUMOPPJ OF HEMATOMA/FLUID 014 51383- Removal of Foreign Body, Subcut 0 02/07/2023 Next Appt Details Provider Name:Agustina Otoole , 09/09/2025 09:00:00 AM, [address] [facility], [place], [address], Insurance Providers Payer Name Payer Address Payer Phone Subscriber Number Group Number Insured Name Patient Relationship to Insured Coverage Start Date Coverage End Date [employer] Preferred [address] [place] [address] [id number] Steve Gomez Self - patient is the insured Medical (General) History Medical History History ICD Code hypercholesterolemia diabetic mumps measles chicken pox cancer Diverticulosis High Blood Pressure 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
--- OUTSIDE RECORDS SUMMARY | 2025-07-15 08:34 | XMS_ITS ---
Author Name [facility] Organization Unknown Care Team Organization Name Specialty Phone Email Start Date End Da jackie [facility] 05/18/2025 [facility] JOSÉ MANUEL CHENG Primary Care 08/06/2022 05/17/20 24
--- OUTSIDE RECORDS SUMMARY | 2025-07-15 08:34 | XMS_ITS | Clinical Summary ---
Author Organization 175 [facility] Address [address] [place] [address] Phone Care Team Providers Care Janitor Helper Name Role Phone Yolanda Parrish Primary Care Provider + Allergies Active Allergy Reactions Criticality Noted Date Comments Amoxicillin-Pot Clavulanate Swelling 01/10/20 18 Atorvastatin 04/26/2025 Ciprofloxacin Swelling 06/13/2015 Doxycycline 06/13/2015 Pollen Extracts Unknown 05/19/2025 Shellfish Containing Products Unknown 2024 Shrimp Unknown 05/19/2025 Simvastatin Itching 05/03/2021 Medications aspirin 81 mg EC tablet Take 1 tablet (81 mg total) by mouth. Active candesartan (ATACAND) 32 mg tablet Take 1 tablet (32 mg total) by mouth 1 (one) time each day. 2 Active metroNIDAZOLE (FLAGYL) 500 mg tablet Take 1 tablet (500 mg total) by mouth 2 (two) times a day. 4 Active amLODIPine (NORVASC) 5 mg tablet Take 1 tablet (5 mg total) by mouth 1 (one) time each day. 90 tablet 3 4 Active atorvastatin (LIPITOR) 20 mg tablet Take 1 tablet (20 mg total) by mouth 1 (one) time each day. 90 tablet 3 4 Active spironolactone (ALDACTONE) 25 mg tablet Take 1 tablet (25 mg total) by mouth 1 (one) time each day. 90 tablet 3 4 Active linaCLOtide (Linzess) 72 mcg capsule Take 1 capsule (72 mcg total) by mouth 1 (one) time each day before breakfast. 30 capsule 3 5 Active fluticasone propionate (FLONASE) 50 mcg/actuation nasal spray Administer 1 spray into each nostril 2 (two) times a day. 16 g 3 5 Active escitalopram (LEXAPRO) 10 mg tabletIndicatio ns:Anxiety TAKE ONE TABLET BY MOUTH EVERY DAY 90 tablet 1 5 Active cetirizine (ZyrTEC) 10 mg tablet TAKE 1 TABLET BY MOUTH DAILY NEEDED 90 tablet 3 5 Active allopurinoL (ZYLOPRIM) 100 mg tablet TAKE TWO TABLETS BY MOUTH EVERY DAY 180 tablet 1 5 Active mometasone (ELOCON) 0.1 % creamIndication s:Itching of ear Apply topically 1 (one) time each day. 45 g 3 5 Active blood-glucose meter kitIndications: Type 2 diabetes mellitus with stage 4 chronic kidney disease, without long-term current use of insulin ([facility]/[employer] V24, CMS/[employer] V28) Inject 1 each under the skin 2 (two) times a day. One Touch meter 1 each 5 Active glucose blood test stripIndication s:Type 2 diabetes mellitus with stage 4 chronic kidney disease, without long-term current use of insulin ([facility]/[employer] V24, CMS/[employer] V28) 1 each by Other route 2 (two) times a day. Use One Touch strip 2 times daily to check sugar. 100 each 3 5 Active lancets lancetsIndicati ons:Type 2 diabetes mellitus with stage 4 chronic kidney disease, without long-term current use of insulin ([employer] V24, CMS/[employer] V28) 1 each by Other route 2 (two) times a day. Use as instructed 100 each 3 5 Active albuterol HFA (PROAIR HFA ; PROVENTIL HFA ; VENTOLIN HFA) 90 mcg/actuation inhaler INHALE TWO PUFFS BY MOUTH EVERY 6 HOURS NEEDED FOR WHEEZING 1 each 5 Active Active Problems Problem Noted Date Diagnosed Date Stage 4 chronic kidney disease ([facility] V24, [facility] /[facility] V28) 04/28/2025 Primary hypertension 08/05/2024 Overview (08/13/2024): Patient had echocardiogram on 07/16/2024 that revealed. The patient was noted to be bradycardic with a heart rate of 50 bpm. There is a normal left ventricular chamber size, moderate concentric left ventricular hypertrophy. Faults tendon noted in the LV apex. Normal regional wall motion. There is normal left ventricular systolic function. Left ventricular ejection fraction 60 to 65%. Normal left ventricular diastolic function. Normal left ventricular global longitudinal strain at - 23.8%. LV global longitudinal strain quantitative relative apical sparing ratio of 1.7. Given evidence of moderate LVH and LV GLS apical sparing ratio of 1.7, would recommend further evaluation with cardiac MRI or cardiac PYP scan. To rule out amyloidosis. Normal right ventricular size and function. Mild tricuspid regurgitation. Mild artery systolic pressure is not elevated. The descending thoracic aorta was noted to be enlarged on limited echocardiographic views. Would recommend to consider a chest CT scan for further evaluation. Assessment & Plan (02/17/2025 9:17 AM EDT): Well-controlled, patient reportedly takes her blood pressures at home that are also well-controlled. We did talk about her needing to continue to check her blood pressures as she actively tries to lose weight we may need to reduce some of her other blood pressure medications. Educated on the importance of diet lifestyle to help further assist in reducing blood pressure. The patient was encouraged to follow low-salt low-fat diet, make purposeful strides towards weight loss, and engage in routine aerobic exercise as tolerated. Orders: Ambulatory referral to Cardiology ECG 12 lead Assessment & Plan (08/13/2024 11:38 AM EST): Patient is slightly hypertensive at the appointment today, however she does have blood pressure measurements from home that show her blood pressure is well-controlled. Patient should continue taking her medication as prescribed. She should continue taking blood pressure measurements at home and should report to the office if she consistently gets values that are outside normal limits. Patient is also followed by nephrology. Type 2 diabetes mellitus wit h kidney complication, without long-term current use of insulin ([facility] V24, [facility] V28) 08/05/2024 History of left breast cancer 08/05/2024 Overview (08/05/2024): Mastectomy 2004 Gout 08/05/2024 Anxiety 08/05/2024 Asthma 08/05/2024 Diverticulitis of large inte sissy without perforation or abscess without bleeding 04/05/2024 History of left mastectomy 04/10/2023 Diverticulitis 04/10/2023 Arthritis 04/10/2023 Weight loss 04/10/2023 Hyperlipidemia 03/10/2018 Assessment & Plan (02/17/2025 9:17 AM EDT): Utilizing atorvastatin 20 mg p.o. daily. Will update lipid panel prior to next visit in 6 months. Patient has been educated to adhere to a healthy cardiac diet. Orders: Basic metabolic panel; Future Assessment & Plan (08/13/2024 11:38 AM EST): Patient recently started on atorvastatin at hospital discharge. Would like to obtain repeat lipid panel at next appointment in 3 months. Patient has been educated to adhere to a cardiac healthy diet which includes limiting sodium and fat. Would like ideally to get her LDL level at 70 or below. Vitamin D deficiency 03/10/2018 Esophageal reflux 09/08/2017 Obesity (BMI 30.0-34.9) Resolved Problems Problem Noted Date Diagnosed Date Resolved Date Chest pain 10/14/2024 10/15/2024 Encounters Date Type Department Care Team Description 07/13/2025 Telephone Internal Medicine [facility] [address] [phone] Yolanda Parrish PA 07/01/2025 Telephone Internal Medicine [facility] [address] [phone] Yolanda Parrish PA 06/16/2025 Telephone Internal Medicine [facility] 175 [facility] [address] [place] [phone] Yolanda Parrish PA 06/01/2025 10:45 AM EDT Office Visit Internal Medicine [address] [phone] Yolanda Parrish PA Primary hypertension (Primary Dx) 05/31/2025 Telephone Internal Medicine [address] [phone] Yolanda Parrish PA 05/24/2025 10:10 AM EDT Office Visit Gastroenterology [address] [phone] Chantell Ling PA Shakiness (Primary Dx); Constipation, unspecified constipation type; Diverticulosis; Type 2 diabetes mellitus with chronic kidney disease, without long-term current use of insulin, unspecified CKD stage (CMS/HCC V24, CMS/HCC V28) 05/24/2025 Telephone Pulmonology [address] [phone] Lidia Lozoya [place] 05/24/2025 Telephone Internal Medicine [address] [phone] Yolanda Parrish PA 05/23/2025 Telephone [facility] [address] [phone] Jaguar Smith NP 05/19/2025 10:15 AM EDT Consult Pulmonology [address] [phone] Fabio Marquez MD Other fatigue (Primary Dx); Snoring; Mild intermittent asthma, unspecified whether complicated 05/16/2025 Telephone Internal Medicine [address] [phone] Yolanda Parrish PA 05/11/2025 Telephone Internal Medicine [address] [phone] Yolanda Parrish PA 05/03/2025 2:00 PM EDT Office Visit Internal Medicine [address] [phone] Yolanda Parrish PA Type 2 diabetes mellitus with stage 4 chronic kidney disease, without long-term current use of insulin ([facility] V24, [facility] V28) (Primary Dx); Primary hypertension; Pure hypercholesterolemia; Obesity (BMI 30.0-34.9) 05/02/2025 Telephone Gastroenterology [address] [phone] Chantell Ling PA 04/29/2025 Telephone Internal Medicine [address] [phone] Sarkis Mccord [place] 04/28/2025 3:00 PM EDT Office Visit Internal Medicine [address] [phone] Tara Saravia NP Primary hypertension (Primary Dx); Hypercholesterolemia; Idiopathic gout, unspecified chronicity, unspecified site; Atherosclerosis; Other fatigue; Snoring; Imbalance; Tremor; Normocytic anemia; Stage 4 chronic kidney disease ([facility] V24, [facility] V28); Type 2 diabetes mellitus with stage 4 chronic kidney disease, without long-term current use of insulin ([facility] V24, [facility] V28); Itching of ear; Vitamin D deficiency 04/26/2025 8:14 PM EDT - 04/26/2025 8:28 PM EDT Emergency [facility] Emergency [address] [place] [phone] Malick Santamaria MD Multiple episodes of hypoglycemia (Primary Dx); Lightheadedness; Generalized weakness; Malaise; Dehydration; Chronic renal impairment, unspecified CKD stage Discharge Disposition: Home or Self Care 04/15/2025 Telephone Internal Medicine [address] [phone] Yolanda Parrish PA from Last 3 Months Surgical History Surgery Date Site/Laterality Comments MASTECTOMY Left PROCEDURE:MASTECTOMY BREAST LUMPECTOMY Left PROCEDURE:BREAST LUMPECTOMY;COMMENT:2003 COLONOSCOPY PROCEDURE:COLONOSCOPY;COMMENT:12/2020 OTHER SURGICAL HISTORY PROCEDURE:HYSTERECTOMY Medical History Medical History Date Comments Osteoarthritis DX:Osteoarthriti s;COMMENT:KNEES AND ANKLES HTN (hypertension) DX:HTN (hyper tension) Type 2 diabetes mellitus ( S/HCC V24, [facility] V28) DX:Type 2 diabetes mellitus (HCC) Hyperlipidemia DX:Hyperlipidemi a Breast cyst, right DX:Breast cys t, right;COMMENT:1999- STABLE Breast cancer ([facility] V24, [facility] V28) DX:Breast cancer (HCC) Vitamin D deficiency DX:Vitamin D deficiency Gastric polyp DX:Gastric polyp ;COMMENT:2015 Obesity (BMI 30.0-34.9) Family History Medical History Relation Name Comments Cancer Daughter breast Hypertension Father Hypertension Mother Hypertension Sister Heart attack Son Hypertension Son Relation Name Status Comments Daughter Alive Father Mother Sister Son Alive Social History Tobacco Use Types Packs/Day Years Used Date Smoking Tobacco: Former Cigarettes Q uit: 01/18/1999 Smokeless Tobacco: Never Tobacco Cessation:Counseling Given: Not Answered Alcohol Use Standard Drinks/Week Comments Not Currently [...] not to disclose 2024 3:37 PM EST Obstetrics History Para Term AB IAB SAB Ectopic Multiple Livin g Live Births 8 Last Filed Vital Signs Vital Sign Reading Time Taken Comments Blood Pressure 140/58 06/01/2025 11:08 AM EDT Pulse 53 06/01/2025 10:40 AM EDT Temperature 36.4 C (97.5 F) 06/01/2025 10:40 AM EDT Respiratory Rate 20 05/19/2025 10:16 AM EDT Oxygen Saturation 98% 06/01/2025 10:40 AM EDT Inhaled Oxygen Concentration - - Weight 93.9 kg (207 lb) 06/01/2025 10:40 AM EDT Height 167.6 cm (5' 6 ) 06/01/2025 10:40 AM EDT Body Mass Index 33.41 06/01/2025 10:40 AM EDT Plan of Treatment Upcoming Encounters Date Type Department Care Team (Late st Contact Info) Description 07/19/2025 10:00 AM EDT Office Visit Pulmonology - [place] 175 [facility] [address] [place] [phone] Fabio Marquez MD [address] [place] [phone] 09/01/2025 10:30 AM EST Office Visit Internal Medicine - [place] 175 [facility] [address] [place] [phone] Yolanda Parrish PA 175 [facility] [address] [place] [address] 09/05/2025 7:40 AM EST Office Visit [facility] [address] [facility] [address] [place] [phone] Jaguar Smith NP [address] [place] [address] 12/21/2025 10:00 AM EDT Ancillary Procedure [facility] 101 300 [facility] [address] [place] [phone] 01/23/2026 8:30 AM EDT Office Visit Vascular Surgery - [place] [address] [facility] [address] [place] [phone] Pelon Joshi MD [address] [place] [phone] 04/07/2026 10:00 AM EDT Office Visit [facility] Hematology Oncology [address] [place] [phone] Quinn Seals MD [address] [place] [phone] Health Maintenance Due Date Last Done Comments Diabetes: Annual Foot Exam 1952 Diabetes: Annual Retina Eye Exam 1950 Pneumococcal Vaccine: 50+ Years (1 of 2 - PCV) 1961 Zoster Vaccines (1 of 2) 1961 RSV Immunization Adult Patients (1 - 1-dose 75+ series) 2017 Medicare Annual Wellness Visit 08/03/2024 Social Influencers of Health Screening 08/03/2024 Depression Screening 2024 Diabetes: Annual Urine Albumin-Creatinine Ratio (uACR) 10/01/2024 COVID-19 Vaccine ( season) 2025 07/03/2023, 09/04/2022, 02/28/2022, Additional history exists Influenza Vaccine (#1) 2025 07/13/2021 Falls Risk Assessment 10/15/2025 10/15/2024 Diabetes: Blood Sugar Control Test (HGBA1C) 10/29/2025 04/28/2025, 01/27/2024 Diabetes: Annual GFR (Glomerular Filtration Rate) 04/26/2026 04/26/2025, 02/24/2025, 12/13/2024, Additional history exists Hypertension/CHF/CAD Annual BMP Blood Test 04/26/2026 04/26/2025, 02/24/2025, 12/13/2024, Additional history exists Cholesterol Screening (Lipid Panel) 01/26/2029 01/27/2024 DTaP,Tdap,and Td Vaccines (3 - Td or Tdap) 06/18/2030 06/18/2020, 04/13/2019 Osteoporosis Screening (Bone Density Screening) 06/08/2031 06/08/2021 HIB Vaccines Aged Out No longer eligi ble based on patient's age to complete this topic HPV Vaccines Aged Out No longer eligi ble based on patient's age to complete this topic Hepatitis A Vaccines Aged Out No long er eligible based on patient's age to complete this topic Hepatitis B Vaccines Aged Out No long er eligible based on patient's age to complete this topic IPV Vaccines Aged Out No longer eligi ble based on patient's age to complete this topic MMR Vaccines Aged Out No longer eligi ble based on patient's age to complete this topic Meningococcal ACWY Vaccine Aged Out N o longer eligible based on patient's age to complete this topic Meningococcal B Vaccine Aged Out No l onger eligible based on patient's age to complete this topic RSV Immunization Patients Under 20 months Aged Out No longer eligible based on patient's age to complete this topic Varicella Vaccines Aged Out No longer eligible based on patient's age to complete this topic Procedures Procedure Name Priority Date/Time Associated Diagnosis Comments VITAMIN D 25 HYDROXY Routine 04/28/2025 3:17 PM EDT Vitamin D deficiency HEMOGLOBIN A1C Routine 04/28/2025 3:17 PM EDT Type 2 diabetes mellitus with stage 4 chronic kidney disease, without long-term current use of insulin ([facility] V24, [facility] V28) ECG ANNOTATED 04/27/2025 THYROID STIMULATING HORMONE WITH REFLEX TO FREE T4 AND FREE T3 STAT 04/26/2025 5:08 PM EDT CBC WITH AUTO DIFFERENTIAL STAT 04/26/2025 5:08 PM EDT MAGNESIUM STAT 04/26/2025 5:08 PM EDT BASIC METABOLIC PANEL STAT 04/26/2025 5:08 PM EDT CBC AND DIFFERENTIAL STAT 04/26/2025 5:08 PM EDT ECG 12-LEAD STAT 04/26/2025 5:05 PM EDT POCT GLUCOSE BLOOD Routine 04/26/2025 4: 57 PM EDT MEGHNA DEXA AXIAL SKELETON Routine 06/08/2021 11:37 AM EDT Asymptomatic menopausal state from Last 3 Months or Most Recently Relevant to Health Maintenance Results * Vitamin D 25 hydroxy (04/28/2025 3:17 PM EDT) [facility] Vit D, 25-Hydroxy 55.1 30.0 - 80.0 ng/mL LAB CHEMISTRY METHOD 04/28/2025 7:03 PM EDT [facility] Blood Venous blood specimen / Unknown Venipuncture / Unknown 04/28/2025 3:17 PM EDT 04/28/2025 3:17 PM EDT Tara Saravia LAB BLOOD ORDERABLES Final Resul t Performing Organization Address [facility] Co de Phone Number [facility] [address] [place] [address], [place] [phone] * Hemoglobin A1c (04/28/2025 3:17 PM EDT) [facility] Hemoglobin A1C 6.4 <6.5 % LAB CHEMISTRY METHOD 04/28/2025 9:56 PM EDT [facility] Mean Bld Glu Estim. 137 mg/dL LAB CHEMISTRY METHOD 04/28/2025 9:56 PM EDT [facility] Blood Venous blood specimen / Unknown Venipuncture / Unknown 04/28/2025 3:17 PM EDT 04/28/2025 3:17 PM EDT Tara Saravia [employer] LAB BLOOD ORDERABLES Final Resul t Performing Organization Address [facility]/ZIP Co de Phone Number [facility] [address] [place] [address], [place] [phone] * ECG-Annotated (04/27/2025) Provider Onbase MD ECG ORDERABLES Final Result * Thyroid stimulating hormone with reflex to free t4 and free t3 (TSH Reflex) (04/26/2025 5:08 PM EDT) [facility] TSH 1.95 0.40 - 4.00 mcIU/mL LAB CHE[facility]STR[facility] Venous blood specimen / Unknown Venipuncture / Unknown 04/26/2025 5:08 PM EDT 04/26/2025 5:25 PM EDT us Dillon Zuniga MD LAB BLOOD ORDERABLES Final Result [facility] [address] [place] [address], * (ABNORMAL) CBC auto differential (04/26/2025 5:08 PM EDT) WBC 6.3 4.8 - 10.8 K/mcL LAB HEMETOLOGY METHOD 04/26/2025 5:31 PM EDT [facility] RBC 3.20(L) 3.80 - 4.80 M/mcL LAB HEMETOLOGY METHOD 04/26/2025 5:31 PM EDT [facility] Hemoglobin 10.2(L) 11.5 - 16.0 g/dL LAB HEMETOLOGY METHOD 04/26/2025 5:31 PM EDT [facility] Hematocrit 32.1(L) 35.0 - 47.0 % LAB HEMETOLOGY METHOD 04/26/2025 5:[facility] MCV 99.1(H) 79.0 - 98.0 FL LAB HEMETOLOGY METHOD 04/26/2025 5:31 PM EDT [facility] MCH 31.5 27.0 - 32.0 pcg LAB HEMETOLOGY METHOD 04/26/2025 5:31 PM EDT [facility] MCHC 31.8(L) 32.0 - 37.0 g/dL LAB HEMETOLOGY METHOD 04/26/2025 5:[facility] RDW 13.3 11.0 - 15.0 % LAB HEMETOLOGY METHOD 04/26/2025 5:31 PM EDT [facility] Platelets 225 130 - 400 K/mcL LAB HEMETOLOGY METHOD 04/26/2025 5:31 PM [facility] MPV 12.1(H) 7.0 - 11.0 FL LAB HEMETOLOGY METHOD 04/26/2025 5:31 PM [facility] NRBC 0.0 <1.0 % LAB HEMETOLOGY METHOD 04/26/2025 5:31 PM [facility] NRBC Absolute 0.00 <0.10 K/mcL LAB HEMETOLOGY METHOD 04/26/2025 5:31 PM [facility] Neutrophils Relative 61.4 % LAB HEMETOLOGY METHOD 04/26/2025 5:31 PM [facility] Lymphocytes Relative 23.0 % LAB HEMETOLOGY METHOD 04/26/2025 5:31 PM [facility] Monocytes Relative 11.0 % LAB HEMETOLOGY METHOD 04/26/2025 5:31 PM [facility] Eosinophils Relative 3.0 % LAB HEMETOLOGY METHOD 04/26/2025 5:31 PM [facility] Basophils Relative 1.1 % LAB HEMETOLOGY METHOD 04/26/2025 5:31 PM [facility] Immature Granulocytes Relative 0.5 % LAB HEMETOLOGY METHOD 04/26/2025 5:31 PM [facility] Neutrophils Absolute 3.89 1.50 - 7.00 K/mcL LAB HEMETOLOGY METHOD 04/26/2025 5:31 PM [facility] Lymphocytes Absolute 1.46 1.00 - 5.00 K/mcL LAB HEMETOLOGY METHOD 04/26/2025 5:31 PM [facility] Monocytes Absolute 0.70 0.20 - 1.00 K/mcL LAB HEMETOLOGY METHOD 04/26/2025 5:31 PM EDT [facility] Eosinophils Absolute 0.19 0.00 - 0.50 K/mcL LAB HEMETOLOGY METHOD 04/26/2025 5:31 PM EDT [facility] Basophils Absolute 0.07 0.00 - 0.20 K/[facility] LAB HEMETOLOGY METHOD 04/26/2025 5:31 PM EDT [facility] Immature Granulocytes Absolute 0.03 0.00 - 0.03 K/[facility] LAB HEMETOLOGY METHOD 04/26/2025 5:31 PM EDT [facility] Blood Venous blood specimen / Unknown Venipuncture / Unknown 04/26/2025 5:08 PM EDT 04/26/2025 5:24 PM EDT Dillon Zuniga MD LAB BLOOD ORDERABLES Final Result Performing Organization Address City/[facility]/ZIP Co de Phone Number [facility] [address] [place] [address], [place] [phone] * Magnesium (04/26/2025 5:08 PM EDT) Pathologist [facility] Magnesium 2.1 1.9 - 2.6 mg/dL LAB CHEMISTRY METHOD 04/26/2025 5:51 PM EDT [facility] Blood Venous blood specimen / Unknown Venipuncture / Unknown 04/26/2025 5:08 PM EDT 04/26/2025 5:25 PM EDT Dillon Zuniga MD LAB BLOOD ORDERABLES Final Result [facility] [address] [place] [address], [place] [phone] * (ABNORMAL) Basic metabolic panel (04/26/2025 5:08 PM EDT) Sodium 135 133 - 145 mmol/L LAB CHEMISTRY METHOD 04/26/2025 5:51 PM EDT [facility] Potassium 5.3 3.5 - 5.5 mmol/L LAB CHEMISTRY METHOD 04/26/2025 5:51 PM T [facility] Chloride 105 96 - 110 mmol/L LAB CHEMISTRY METHOD 04/26/2025 5:51 PM [facility] CO2 27 21 - 32 mmol/L LAB CHEMISTRY METHOD 04/26/2025 5:51 PM [facility] Anion Gap 3 3 - 11 LAB CHEMISTRY METHOD 04/26/2025 5:51 PM [facility] Glucose 113(H) 70 - 100 mg/dL LAB CHEMISTRY METHOD 04/26/2025 5:51 PM [facility] BUN 24 5 - 25 mg/dL LAB CHEMISTRY METHOD 04/26/2025 5:51 PM [facility] Creatinine 1.81(H) 0.50 - 1.10 mg/dL LAB CHEMISTRY METHOD 04/26/2025 5:51 PM [facility] eGFR 28(L) >=60 mL/min/1. 73m2 LAB CHEMISTRY METHOD 04/26/2025 5:51 PM [facility] Comment:Calculation based on the Chronic Kidney Disease Epidemiology Collaboration (CKD-EPI) equation refit without adjustment for race. BUN/Creatinine Ratio 13.3 LAB CHEMISTRY METHOD 04/26/2025 5:51 PM [facility] Calcium 9.3 8.5 - 10.5 mg/dL LAB CHEMISTRY METHOD 04/26/2025 5:51 PM [facility] Blood Venous blood specimen / Unknown Venipuncture / Unknown 04/26/2025 5:08 PM EDT 04/26/2025 5:25 PM EDT us Dillon Zuniga MD LAB BLOOD ORDERABLES Final Result [facility] [address] [place] [address], [place] [phone] * ECG 12 lead (04/26/2025 5:05 PM EDT) [facility] Signature Ventricular Rate ECG 60 BPM GEMUSE Atrial Rate 60 BPM GEMUSE P-R Interval 192 ms GEMUSE QRS Duration 88 ms GEMUSE Q-T Interval 398 ms GEMUSE QTc 398 ms GEMUSE P Wave [place] 62 degrees GEMUSE R [place] 10 degrees GEMUSE T [place] 75 degrees GEMUSE ECG Interpretation Normal sinus rhythm Possible Left atrial enlargement Nonspecific T wave abnormality When compared with ECG of 17-FEB-2025 08:45, (unconfirmed) No significant change was found Confirmed by RUBY KILLIAN ([id number]) on 04/27/2025 10:01:05 PM GEMUSE 04/26/2025 5:05 PM EDT 04/27/2025 10:01 PM EDT Dillon Zuniga MD ECG ORDERABLES Final Resul t GEMUSE * (ABNORMAL) POCT Glucose, blood (04/26/2025 4:57 PM EDT) [facility] Glucose POCT 112(H) 70 - 100 mg/dL 04/26/2025 4:58 PM EDT [facility] Blood Capillary blood specimen / Unknown 04/26/2025 4:57 PM EDT 04/26/2025 4:59 PM EDT us Generic Provider Poct LAB POINT OF CARE TEST DOCKED DEVICE UNSOLICITED RESULTS Final Result [facility] [address] [place] [address], [place] [phone] * MEGHNA DEXA AXIAL SKELETON (06/08/2021 11:37 AM EDT) Anatomical Region Laterality Modality Mammography 06/08/2021 10:4 0 AM EDT Narrative 06/08/2021 11:37 AM EDT [facility] Diagnostic Imaging Department [address] [place] [id number] Patient: STEVE FRANCO Romelia /Age/Sex: 1940 - 80 - F Unit#: [id number] Location/Status: SPDIMA/REG CLI Mnem[facility] [facility] Ordering Physician: DARLEEN RUIZ CNM Meghna Dexa Axial Skeleton - 06/08/211131 HISTORY: The patient is a 80-year-old postmenopausal female with clinical concern for metabolic bone disease. FINDINGS: Dual energy x-ray absorptiometry of the lumbar spine and femurs is performed. The mean bone mineral density at L1-L4 (with the exclusion of L3) is 1.622 gm/cm2 which is 139% of that of young normals and 139% of that of age matched controls. This yields a T-score of 3.8 and a Z-score of 3.8 and there is therefore no evidence of osteoporosis or osteopenia here. The mean bone mineral density of the femurs bilaterally is 1.309 gm/cm2 which is 130% of that of young normals and 133% of that of age matched controls. This yields a T-score of 2.4 and a Z-score of 2.6 and there is therefore no evidence of osteoporosis or osteopenia here. IMPRESSION: 1. There is no evidence of osteoporosis or osteopenia. There has been a decrease of 1.0% in bone mineral density in the lumbar spine since the prior examination of 02/12/2017. There has been a decrease of 2.2% in bone mineral density in the right femur and an increase of 2.8% in bone mineral density in the left femur. 2. FRAX analysis yields a 10-year probability of major osteoporotic fracture of 3.2% and a 10-year probability of hip fracture of 0.3%. Code 59187 Dictating Physician: GEGE NORTH MD Electronically Signed by: GEGE NORTH MD Dic Date/Time: 06/08/211135 Sign date/Time: 06/08/211136 Procedure Note Gege North MD - 09/25/2022 [facility] Diagnostic Imaging Department [address] [place] [address] Patient: STEVE FRANCO Romelia TorresB./Age/Sex: 1940 - 80 - F Unit#: [id number] Location/Status: [facility] Mnemonic/Ordering Site: [facility] [place] Ordering Physician: DARLEEN RUIZ CNM [facility] Dexa Axial Skeleton - 06/08/211131 HISTORY: The patient is a 80-year-old postmenopausal female withclinical concern for metabolic bone disease. FINDINGS: Dual energy x-ray absorptiometry of the lumbar spine and femursis performed. The mean bone mineral density at L1-L4 (with the exclusion ofL3) is 1.622 gm/cm2 which is 139% of that of young normals and 139% of that ofage matched controls. This yields a T-score of 3.8 and a Z-score of 3.8 andthere is therefore no evidence of osteoporosis or osteopenia here. The mean bone mineral density of the femurs bilaterally is 1.309 gm/lg6pnjal is 130% of that of young normals and 133% of that of age matched controls.This yields a T-score of 2.4 and a Z-score of 2.6 and there is therefore noevidence of osteoporosis or osteopenia here. IMPRESSION: 1. There is no evidence of osteoporosis or osteopenia. There has been a decrease of 1.0% in bone mineral density in the lumbar spine since theprior examination of 02/12/2017. There has been a decrease of 2.2% in bonemineral density in the right femur and an increase of 2.8% in bone mineral densityin the left femur. 2. FRAX analysis yields a 10-year probability of major osteoporoticfracture of 3.2% and a 10-year probability of hip fracture of 0.3%. Code 43369 Dictating Physician: GEGE NORTH MD Electronically Signed by: GEGE NORTH MD Dic Date/Time: 06/08/21 1136 Sign date/Time: 06/08/21 1137 Darleen Ruiz [facility] BI PROCEDURES Final Resul t from Last 3 Months or Most Recently Relevant to Health Maintenance Insurance [employer] [place] Advance Directives * Full Code - Default (Latest Code Status on File) Date Activated Date Inactivated Comments 10/14/2024 5:36 PM 10/15/2024 6:04 PM This is orde r is used when code status has not been discussed with the patient, or code status is otherwise unknown/unconfirmed To update the patient's code status, place a code status order. Do not modify or discontinue any currently active code status orders. Care Teams Janitor Helper Relationship Specialty Start Date End Date Yolanda Parrish PA [address] [facility] [address] [place] [address] PCP - General Primary Care 08/03/24
--- OUTSIDE RECORDS SUMMARY | 2025-07-15 08:34 | XMS_ITS | Encounter Summary ---
Author Organization [facility] Address [address] [place] [address] Encounters * CPT with Medical [facility] at [facility] on 2025-05-05 { reasonForRequest : *Pt requesting copay claim be sent to [facility] in order for them to bill her\n\nPt reporting a lot of burping>gas>recently had gone to the ED>noting she feels weak lately, off balance, not herself , patientReports : , denies :[ Sharp focal or diffuse abdominal pain , Vomiting blood/coffeeground material , Bloating, jaundice new onset with pain , Nausea and vomiting greater than 2 hours with abdominal pain , Tearing pain that radiates to back , Food Impaction ], chiefComplaints : Abdominal Pain , pmh : Diabetes Mellitus Type 2, Hyperlipidemia, Hypertension , allergies : No Known Drug Allergies , otherAllergies : , painAssessment : ,&qu ot;visitOutcome : , additionalComments : 84 y.o female complains of Abdominal Pain\n\nPatient reports excessive belching for 3 weeks.\nSmaxi was seen in the ED, blood work benign, no imaging, they did not offer any interventions.\nPatient saw her PCP on friday, who told her that he blood sugars elevating then dropping could be causing her pancreas to induce the gas and pain, as well as eating fried foods.\nPatient states this has happened before but self resolved.\nShe also reports left flank pain, feeling weak and fatigued, off balance, but not dizzy, denies headache, also feels jittery at times.\nShe denies any abdominal pain, no acid reflux, intermittent nausea, denies vomiting or diarrhea, no chest pain.\nLBM yesterday.\nSubjective low grade temp, and occa sional chills.\nShe has been taking pepto bismol and mylanta with some relief.\nShe would like to be evaluated.\n\n\nI provided information on the mobile health provider response time and advised thepatient and/or caregiver to monitor reported signs and symptoms. I discussed the warning signs of when to seek emergency care. } Dispatched to above address for GI symptoms, weakness feeling unbalanced, jittery. On arrival patient 84 y/o F, met SC8 at the door, walking unassisted with normal gait, AOX4, airway patent, speakingin full sentences, good color, in no apparent distress. Patient states for the last several weeks has had some ongoing complaints of intermittent nausea burning pain around navel, feeling unbalanced and jittery, states symptoms are worse after eating fried food or food high in acid, hasbeen seen in the ER and by PCP for these issues without findings. Patients vital signs checked. Secondary assessment, pupils PERRL, airway patent, no JVD, trachea midline, equal chest rise and fall, lungs clear all gaspar, abdomen soft non tender, no signs of trauma, good radial pulse, skin pink warm and dry, no nystagmus, stroke assessment negative. [facility] contacted, spoke with Dr. Purdy, advised of patient complaints and exam findings. [facility] recommends eating a bland diet and follow up with PCP. Patient agrees with this plan. Patient advised of home care, red flags and need for follow up. Patient has no additional questions or concerns at this time. SC8 clear. EOR. IV_(FLUIDS_AND/OR_MEDICATION), MEDICATION_IM Written by Medical instED on 2025-05-05
--- OUTSIDE RECORDS SUMMARY | 2025-07-15 08:35 | XMS_ITS | Clinical Summary ---
Author Organization [facility] Address [address] [place] [address] Care Team Providers Care Employment And Claims Aide Name Role Phone Steven Olson MD Primary Care Provider Unavailab le Allergies No known active allergies Medications Medication Sig Dispensed Refills Start Date End Date Status albuterol 108 (90 Base) MCG/ACT inhaler USE 2 PUFFS BY MOUTH EVERY 6 HOURS, IF NEEDED FOR COUGHING OR WHEEZING. 0 03/21/2022 Active allopurinol (ZYLOPRIM) 100 MG tablet Take 2 tablets (200 mg total) by mouth daily. 0 03/30/2022 Active aspirin 81 MG EC tablet Take 1 tablet (81 mg total) by mouth. 0 Active candesartan (ATACAND) 32 MG tablet TAKE ONE TABLET BY MOUTH EVERY DAY 0 03/26/2022 Active cetirizine (ZyrTEC) 10 MG tablet Take 1 tablet (10 mg total) by mouth daily as needed. 0 03/30/2022 Active fluticasone (FLONASE) 50 MCG/ACT nasal spray USE 1 SPRAY IN EACH NOSTRIL TWO TIMES A DAY NEEDED 0 02/14/2022 Active hydroCHLOROthiazide (HYDRODIURIL) tablet 12.5 mg TAKE ONE TABLET BY MOUTH EVERY DAY 0 01/16/2022 Active metroNIDAZOLE (FLAGYL) 500 MG tablet Take 1 tablet (500 mg total) by mouth 2 (two) times a day. 14 tablet 0 04/05/2024 Active ciprofloxacin (CIPRO) 250 MG tablet Take 1 tablet (250 mg total) by mouth 2 (two) times a day. 14 tablet 0 04/05/2024 Active Active Problems Problem Noted Date Diagnosed Date Diverticulitis of large inte sissy without perforation or abscess without bleeding 04/05/2024 History of breast cancer in female 04/10/2023 History of left mastectomy 04/10/2023 Diverticulitis 04/10/2023 Arthritis 04/10/2023 Weight loss 04/10/2023 Family History Medical History Relation Name Comments Cancer Daughter breast Hypertension Father Hypertension Mother Hypertension Sister Heart attack Son Hypertension Son Relation Name Status Comments Daughter Alive Father Mother Sister Son Alive Social History Tobacco Use Types Packs/Day Years Used Date Smoking Tobacco: Former Cigarettes 0.5 Q uit: 01/18/1999 Smokeless Tobacco: Never Alcohol Use Standard Drinks/Week Comments Not Currently 0 (1 standard drink = 0.6 oz pur e alcohol) Sex and Gender Information Value Date Recorded Sex Assigned at Not on file Gender Identity Not on file Sexual Orientation Not on file Job Start Date Occupation Industry Not on file Not on file Not on file Last Filed Vital Signs Vital Sign Reading Time Taken Comments Blood Pressure 173/55 04/05/2024 9:43 AM EDT Pulse 54 04/05/2024 9:43 AM EDT Temperature 36.6 C (97.9 F) 04/05/2024 9:43 AM EDT Respiratory Rate - - Oxygen Saturation 100% 04/05/2024 9:43 AM EDT Inhaled Oxygen Concentration - - Weight 95.3 kg (210 lb) 04/05/2024 9:43 AM EDT Height 160 cm (5' 3 ) 04/04/2022 11:21 AM EDT Body Mass Index 37.2 04/04/2022 11:21 AM EDT Plan of Treatment Health Maintenance Due Date Last Done Comments Depression Screening 1954 Preventative Health Evaluation 1960 Shingrix-Zoster Vaccine (1 o f 2) 1992 Fall Risk Assessment 2007 Osteoporosis Screening (DEXA Scan) 2007 Pneumococcal Vaccine (1 of 1 - PCV) 2007 RSV Adult > 60+ Yrs or (1 - 1-dose 75+ series) 2017 COVID-19 Vaccine (4 - 2024-2 6 season) 2025 07/16/2021, 11/30/2020, 11/09/2020 Influenza Vaccine (#1) 2025 DTap / Tdap / Td (2 - Td or Tdap) 04/13/2029 04/13/2019 Hepatitis B Vaccines Aged Out No long er eligible based on patient's age to complete this topic RSV Ped < 20 months Aged Out No longe r eligible based on patient's age to complete this topic Care Teams Employment And Claims Aide Relationship Specialty Start Date End Date Steven Olson MD PCP - General Internal Medicine 03/27/22
--- OUTSIDE RECORDS SUMMARY | 2025-07-15 08:35 | XMS_ITS | Encounter Summary ---
Author Organization [facility], Address [address] [facility] [place] [address] Phone Care Team Providers Care Extractor Plant Operator Name Role Phone Steven Olson MD Primary Care Provider [phone] Encounter Details Date Type Department Care Team ([facility] Contact Info) Description 01/28/2024 Documentation Only [facility] [address] [place] [address] Abram Bhatti MD [address] [place] [address] [place] [address] Social History Tobacco Use Types Packs/Day Years [...] Upcoming Encounters Date Type Department Care Team ([facility] Contact Info) Description 11/25/2025 2:00 PM EST Office Visit [facility] [address] [place] [address] Abram Bhatti MD [address] [place] [address] [place] [address] documented as of this encounter Visit Diagnoses Not on filedocumented in this encounter Care Teams Extractor Plant Operator Relationship Specialty Start Date End Date Steven Olson MD [address] [place] [address] PCP - General 08/03/19 documented as of this encounter
[2025-07-15 08:36] VITALS: BP 128/54; PULSE 61; O2SAT 97; BMI 33.1
--- NOTE | 2025-07-15 08:36 | HO.NEPHOV ---
Vital Signs 07/15/25 08:36 Height 5 ft 6 in Weight 205 lb BMI 33.1 BP 128/54 L Blood Pressure Location Rt brachial Position Sitting Pulse 61 Pulse Source Pulse Oximeter Pulse Oximetry (%) 97 Oxygen Delivery Method Room Air Intake Visit Reasons: ENP: Essential HTN, confirmed Physician Coding Specialist Required: No Accompanied by: Son Allergies atorvastatin Allergy (Unknown, Verified 07/15/25 08:38) Unknown ciprofloxacin Allergy (Unknown, Verified 07/15/25 08:38) Swelling doxycycline Allergy (Unknown, Verified 07/15/25 08:38) Unknown pollen extracts Allergy (Unknown, Verified 07/15/25 08:38) Unknown shellfish derived (shellfish) Allergy (Unknown, Verified 07/15/25 08:38) Unknown simvastatin Allergy (Unknown, Verified 07/15/25 08:38) Itching amoxicillin pot clavulanate Allergy (Unknown, Uncoded 07/12/25 14:11) Swelling HPI Comments Details: 84-year-old lady with past medical history of hypertension, diabetes mellitus, CKD, vitamin-D deficiency is here to establish care for the management of Hypertension. Here with son Reina Hypertension: Since 30 years on candesartan 32 mg, amlodipine 5 mg daily, spironolactone 25 mg daily Father and Mother had high blood pressures. Follows Dr. Bhatti for CKD. [facility] Medical History (Updated 07/15/25 @ 09:27 by Francesco Schilling MD) Chronic kidney disease Hypertension Type 2 diabetes mellitus with kidney complication, without long-term current use of insulin Vitamin D deficiency Stage 4 chronic kidney disease Primary hypertension Obesity (BMI 30.0-34.9) Hyperlipidemia History of left breast cancer Gout Esophageal reflux Diverticulitis of large intestine without perforation or abscess without bleeding Diverticulitis Asthma Arthritis Anxiety Surgical History History of left mastectomy H/O mastectomy Review of Systems Const Details: Const : no body aches, no chills, no excessive sweating and no fatigue Eyes: no blurry vision and no change in vision ENT: no bleeding gums and no change in voice, no dizziness Card: no chest pain, no shortness of breath, no orthopnea, no PND Resp: no cough, no excessive phlegm production, no SOB GI: no abdominal pain and no nausea, no vomiting : no hematuria, no urinary frequency and no difficulty voiding Musc: no abnormal gait, no bone pain Neuro: no abnormal movements and no behavioral changes Psych: no behavioral changes and no change in appetite Endo: no change in body appearance, and no fatigue Physical Exam Vital Signs: Last Vital Signs Pulse 61 07/15/25 08:36 BP 128/54 L 07/15/25 08:36 Pulse Ox 97 07/15/25 08:36 Oxygen Delivery Method Room Air 07/15/25 08:36 BMI result Body Mass Index 33.1 General: not in any acute distress, comfortable, sitting on the chair Nutritional Appearance: well nourished and weight Eyes: normal position, no icterus Neck: No lymphadenopathy, no thyromegaly Resp: bilateral air entry equal, no added sounds present Cardio: normal S1, S2 heard, no murmur heard, no edema GI: soft, nontender, no guarding, no hepatosplenomegaly : bladder normal to inspection, bladder normal to palpation, no renal angle tenderness Skin: no rashes or lesions noted and elasticity normal Neuro: oriented to person, oriented to place, oriented to time and moves all extremities Assessment & Plan Assessment & Plan (1) Hypertension: Code(s): I10 - Essential (primary) hypertension Category: Medical (2) Chronic kidney disease: Code(s): N18.9 - Chronic kidney disease, unspecified Category: Medical Plan Hypertension: currently on candesartan 32, amlodipine 5 and spironolactone. Will switch to candesartan/HCTZ 12.5mg to reduce salt loading, if the blood pressure stays high will increase HCTZ to 25mg. Continue spironolactone. Will see her response and if needed will take her off of spironolactone in the following visit Explained her that salt is poison, it is going to retain water and makes her blood pressure control difficult Educated her about Diet: asked her to avoid red meat, switch to plant based diet, loves sea food, Dash diet. lost about 7lbs, weighing 205lbs; explained her about benefits of weight loss in controlling the blood pressures is the highest. Exercise 30mins atleast 5 days a week, she said she will get her threadmill out. Will follow her in 3 months. Orders: Orders Microalbumin, Random (w Creat) 3 Months I10 - Essential (primary) hypertension, N18.9 - Chronic kidney disease, unspecified UA and rflx microscopic 3 Months I10 - Essential (primary) hypertension, N18.9 - Chronic kidney disease, unspecified Aldost/Renin 3 Months I10 - Essential (primary) hypertension, N18.9 - Chronic kidney disease, unspecified Basic Metabolic Panel 3 Months I10 - Essential (primary) hypertension, N18.9 - Chronic kidney disease, unspecified Medications: New candesartan-hydrochlorothiazid 32-12.5 mg 1 tab PO DAILY 30 tabs 3RF Coding Level of Care Code New Pt Level 4 (20572) Diagnoses Hypertension I10 Chronic kidney disease N18.9
== END 2025-07-15 09:17 | disposition home or self-care (01) ==
LOC: HO.HKAS 08:17
PROVIDERS: PCP Physician Assistant; Referring Provider Physician Assistant; Visit Provider Internal Medicine Critical Care Medicine
DX: I12.9 Hypertensive chronic kidney disease with stage 1 through stage 4 chronic kidney disease, or unspecified chronic kidney disease (principal); N18.9 Chronic kidney disease, unspecified
CPT/HCPCS: 99204

== ENCOUNTER 2025-08-18 08:49 | Outpatient (AMB) | payer OTHER, MEDICAID, SELFPAY ==
[2025-08-18 09:07] VITALS: BMI 33.4
--- NOTE | 2025-08-18 09:07 | MHC.AMNUTRGE ---
VS Expanded 08/18/25 09:07 08/22/25 10:17 Height 5 ft 6 in 5 ft 6 in Weight 207 lb 207 lb BMI 33.4 33.4 Intake Visit Reasons: Obesity Allergies atorvastatin Allergy (Unknown, Verified 07/15/25 08:38) Unknown ciprofloxacin Allergy (Unknown, Verified 07/15/25 08:38) Swelling doxycycline Allergy (Unknown, Verified 07/15/25 08:38) Unknown pollen extracts Allergy (Unknown, Verified 07/15/25 08:38) Unknown shellfish derived (shellfish) Allergy (Unknown, Verified 07/15/25 08:38) Unknown simvastatin Allergy (Unknown, Verified 07/15/25 08:38) Itching amoxicillin pot clavulanate Allergy (Unknown, Uncoded 07/12/25 14:11) Swelling Nutrition Presentation Details: Pt presents for MNT for obesity Patient reports working on reducing on sugar intake Typical meal breakfast: coffee with truvia, cornflakes with 2% milk Lunch: Rotisserie chicken with salad, water Dinner vegetables and fish or baked chicken snack, fruits, crackers He eats out 3 to 4 times a week: Family style restaurant Food frequency Fruits 0-1 a day Dairy 0 per day Fish 0 2 once a week Vegetable: Once to twice a week Beverages: Water, coffee, juices AGM-Nxjlmbq-Cs.Jeor Equation Height: 5 ft 6 in Weight: 207 lb Resting Metabolic Rate: 1421.31 Calculated Activity Level: Sedentary Calories Needed to Maintain Weight: 1705.57 Diagnosis Nutrition problem #1: food nutri know defi As related to (etiology) #1: diagnosis As evidenced by (sign/symptom) #1: knowledge deficit of diet [facility] Medical History (Updated 08/22/25 @ 10:21 by Rosy Bradley, RD, LDN) Chronic kidney disease Hypertension Type 2 diabetes mellitus with kidney complication, without long-term current use of insulin Vitamin D deficiency Stage 4 chronic kidney disease Primary hypertension Hyperlipidemia History of left breast cancer Gout Esophageal reflux Diverticulitis of large intestine without perforation or abscess without bleeding Diverticulitis Asthma Arthritis Anxiety Surgical History History of left mastectomy H/O mastectomy Family History (Updated 08/12/25 @ 12:44 by Luke Bryson MA) Mother Hypertension Father Hypertension Sister Hypertension Daughter Breast cancer Son Hypertension Heart attack Social History (Updated 08/12/25 @ 12:41 by Luke Bryson MA) Comment: not currently Patient Tobacco Use Status: Former Tobacco user e-Cigarette/Vaping Use: Never Used Assessment & Plan Assessment & Plan (1) Obesity (BMI 30-39.9): Code(s): E66.9 - Obesity, unspecified Category: Medical Plan: current wt: 94 kg ( 08/23 ) est kcal needs as per MSJ: 1700 est protein needs as per 1 g/kg BW: 90 est fluid needs as per 30 ml/kg BW: 2800 Recommended fiber > 12 g /day and gradually increase up to 25-28 g /day or as tolerated Recommended sodium intake less than 2300 mg per day unless otherwise specified by the doctor Nutrition topics discussed : Reviewed (R), Pt verbalized understanding (V) , not applicable (N/A) R, : Healthy Plate Method Concept: R, : Carbohydrates: food sources of carbohydrates, relationship of carbohydrates to blood glucose, fatty liver GI health. Recommended total amount of carbohydrates per meals and snack. Differences between simple carbohydrates and complex carbohydrates R, : Lean protein foods including vegan , vegetarian sources of protein. Benefits of protein (including but not limited to healing, nutritional value , benefits in weight loss, glucose control R, : Fats : Source of fats, benefits of fats. Difference between saturated and unsaturated fats. Saturated fats and its contribution to inflammation R, V, N/A: Fiber: food sources and role of fiber in the diet (including but not limited to its role as a prebiotic, benefits in constipation, role in IBS , role in glucose control and cholesterol level) R, V, N/A: Hydration: role of hydration and prevention of dehydration or over hydration. Foods and water content. R, V, N/A: Vitamins and Minerals in foods and supplements R, V, N/A: Interpreting food labels, including serving size, macronutrients, vitamins, minerals, allergens, ingredient list , % daily value Reviewed eating out food options lower in salt and and lower-fat options Patient Instructions: Choose lower fat and low-sodium options when eating out see list of ideas Follow healthy plate method To have foods as snacks Coding Level of Care Code Nutr Indiv Intake (61866) Diagnoses Obesity (BMI 30-39.9) E66.9 Time Spent (min) 30
[2025-08-22 10:17] VITALS: BMI 33.4
== END 2025-08-18 09:40 | disposition home or self-care (01) ==
LOC: HO.ENCR 08:49
PROVIDERS: PCP Physician Assistant; Visit Provider Dietitian, Registered
DX: E66.9 Obesity, unspecified (principal)

== ENCOUNTER → 2025-08-18 08:49 | Outpatient (BNVA) | payer OTHER, MEDICAID, SELFPAY | PROVIDERS: PCP Physician Assistant; Visit Provider Dietitian, Registered | DX: Z71.3 Dietary counseling and surveillance (principal); E66.9 Obesity, unspecified | CPT/HCPCS: 97802 ==

== ENCOUNTER 2025-08-31 08:24 | Outpatient (AMB) | payer OTHER, MEDICAID, SELFPAY ==
[2025-08-31 08:26] VITALS: BP 148/70; PULSE 56; O2SAT 97; BMI 33.3
--- NOTE | 2025-08-31 08:26 | A.OFFVIS_ITS ---
Vital Signs 08/31/25 08:26 Height 5 ft 6 in Weight 206 lb 6 oz BMI 33.3 BP 148/70 H Blood Pressure Location Rt brachial Position Sitting Pulse 56 Pulse Source Pulse Oximeter Pulse Oximetry (%) 97 Oxygen Delivery Method Room Air Intake Visit Reasons: ENP - Tremor (CONF.) Intake Note: Tremor Cotton Bag Sewer Required: No Accompanied by: Self / Same As Patient Allergies atorvastatin Allergy (Unknown, Verified 08/31/25 08:26) Unknown ciprofloxacin Allergy (Unknown, Verified 08/31/25 08:26) Swelling doxycycline Allergy (Unknown, Verified 08/31/25 08:26) Unknown pollen extracts Allergy (Unknown, Verified 08/31/25 08:26) Unknown shellfish derived (shellfish) Allergy (Unknown, Verified 08/31/25 08:26) Unknown simvastatin Allergy (Unknown, Verified 08/31/25 08:26) Itching amoxicillin pot clavulanate Allergy (Unknown, Uncoded 07/12/25 14:11) Swelling Medication List - Last Reconciled 08/31/25 by Blanca Ricardo MD albuterol sulfate 90 mcg/actuation 2 puffs inhalation Q6H PRN allopurinol 200 mg PO DAILY aspirin 81 mg PO DAILY atorvastatin 20 mg PO DAILY candesartan-hydrochlorothiazid 32-12.5 mg 1 tab PO DAILY cetirizine 10 mg PO DAILY PRN escitalopram oxalate 10 mg PO DAILY fluticasone propionate 50 mcg/actuation 1 spray intranasal BID linaclotide (Linzess) 72 mcg PO QAM mometasone 0.1% appl topical DAILY omeprazole 20 mg PO DAILY spironolactone 25 mg PO DAILY HPI Comments Details: 84y/o Right handed female comes for evaluation of tremors. she started noticing tremors especially in the mornings 5-6 years and has worsened recently when her kidneys were not functioning well. she started eating healthy and exercising and she feels the tremors are better. The tremors - she calls jittery in the hands . It is worse in AM when she wakes up and as day goes on she is better. she has disrupted sleep - due to nocturia . when she drinks water and eats healthy she is better. no head leg or voice tremors. No change in speech gait- normal she has mild memory issues No sleep talking No falls . she lives her son and needs help with laundry - since it is in the basement. No head injury No h/o exposure to neuroleptics No family h/o tremors [facility] Medical History (Updated 08/31/25 @ 09:15 by Blanca Ricardo MD) Occasional tremors Chronic kidney disease Hypertension Type 2 diabetes mellitus with kidney complication, without long-term current use of insulin Vitamin D deficiency Stage 4 chronic kidney disease Primary hypertension Hyperlipidemia History of left breast cancer Gout Esophageal reflux Diverticulitis of large intestine without perforation or abscess without bleeding Diverticulitis Asthma Arthritis Anxiety Surgical History History of left mastectomy H/O mastectomy Family History Mother Hypertension Father Hypertension Sister Hypertension Daughter Breast cancer Son Hypertension Heart attack Social History Comment: not currently Patient Tobacco Use Status: Former Tobacco user e-Cigarette/Vaping Use: Never Used Physical Exam Vital Signs: Last Vital Signs Pulse 56 08/31/25 08:26 BP 148/70 H 08/31/25 08:26 Pulse Ox 97 08/31/25 08:26 Oxygen Delivery Method Room Air 08/31/25 08:26 BMI result Body Mass Index 33.3 Const General: cooperative, healthy appearing, comfortable and no acute distress Nutritional Appearance: average body habitus Orientation/consciousness: patient oriented x3 Eyes Pupils: Equal, round and reactive pupils present Neuro Other: no tremors General: patient oriented x3, No gait normal, tone normal, moves all extremities and no focal motor deficits Cranial nerves: Yes Facial sensation intact/muscles of mastication intact, Yes Equal, round and reactive pupils present, Yes Bilaterally intact EOM present, Yes Nystagmus not present, Yes Normal facial strength present, Yes Midline tongue present, Yes Symmetric palate elevation present and Yes Ability to bilat erally elevate shoulders present Cognition (Neuro): normal cognition Gait exam (Neuro): Antalgic gait present Motor exam (neuro): 5/5 motor strength present throughout and Normal motor muscle tone present throughout Deep tendon reflexes (DTR's): Right triceps reflex intensity grade: 1+, Left triceps reflex intensity grade: 1+, Rt Biceps (C5, C6): 1+, Left biceps reflex intensity grade: 1+, Right brachioradialis reflex intensity grade: 1+, Left brachioradialis reflex intensity grade: 1+, Right patellar reflex intensity grade: 1+ and Left patellar reflex intensity grade: 1+ Coordination: [id number] test normal Assessment & Plan Assessment & Plan (1) Occasional tremors: Comment: likely exaggertaed physiological tremors Code(s): R25.1 - Tremor, unspecified Category: Medical Plan No evidence of parkinsons on todays exam The tremors does not affect her ADLs. she can be monitored clinically I will see her in 1 year or earlier if new neurological symptoms arise. Coding Level of Care Code New Pt Level 4 (75839) Diagnoses Occasional tremors R25.1
--- OUTSIDE RECORDS SUMMARY | 2025-08-31 08:34 | XMS_ITS | Encounter Summary ---
Author Organization [facility], Address [address] [facility] [place] [address] Phone Care Team Providers Care Residential Monitor Name Role Phone Steven Olson MD Primary Care Provider [phone] Encounter Details Date Type Department Care Team (Late Contact Info) Description 08/04/2024 Documentation Only [facility] [address] [place] [address] [place] [address] [place] [address] Social History Tobacco Use Types [...] Visit [facility] [address] [place] [address] Abram Bhatti MD [address] [place] [address] documented as of this encounter Visit Diagnoses Not on filedocumented in this encounter Care Teams Residential Monitor Relationship Specialty Start Date End Date Steven Olson MD [address] [place] [id number] PCP - General 08/03/19 documented as of this encounter
--- OUTSIDE RECORDS SUMMARY | 2025-08-31 08:34 | XMS_ITS | Encounter Summary ---
Author Organization [facility], Address [address] [facility] [place] [address] Phone Care Team Providers Care Database Administration Associate Name Role Phone Steven Olson MD Primary Care Provider [phone] Encounter Details Date Type Department Care Team ([facility] Contact Info) Description 01/28/2024 Documentation Only [facility] [address] [place] [address] Abram Bhatti MD [address] [place] [address] [place] [address] Social History Tobacco Use Types [...] Upcoming Encounters Date Type Department Care Team ([facility] Contact Info) Description 11/25/2025 2:00 PM EST Office Visit [facility] [address] [place] [address] Abram Bhatti MD [address] [place] [address] [place] [address] documented as of this encounter Visit Diagnoses Not on filedocumented in this encounter Care Teams Database Administration Associate Relationship Specialty Start Date End Date Steven Olson MD [address] [place] [address] PCP - General 08/03/19 documented as of this encounter
--- OUTSIDE RECORDS SUMMARY | 2025-08-31 08:34 | XMS_ITS | Encounter Summary ---
Author Organization [facility] Address [address] [place] [address] Care Team Providers Care Airborne Operations Name Role Phone Yolanda Parrish Primary Care Provider + Encounter Details Date Type Department Care Team (Late st Contact Info) Description 08/08/2025 Telephone Internal Medicine - [place] [address] [place] [phone] Yolanda Parrish PA [address] [place] [address] Social History Tobacco Use Types Packs/Day Years [...] Author No 04/26/2025 5:00 PM EDT Antonette Mcclain, JEWELL * Are you blind or do you [...] Author No 04/26/2025 5:00 PM EDT Antonette Mcclian RN documented in this encounter Plan of Treatment Upcoming Encounters Date Type Department Care Team (Late st Contact Info) Description 09/01/2025 10:30 AM EST Office Visit Internal Medicine - [place] [address] [facility] [address] [place] [phone] Yolanda Parrish PA [address] [place] [address] 12/21/2025 10:00 AM EDT Ancillary Procedure [facility] [address] [facility] [address] [place] [address] 01/23/2026 8:30 AM EDT Office Visit Vascular Surgery - [place] [address] [facility] [address] [place] [phone] Pelon Joshi MD [address] [place] [phone] 04/07/2026 10:00 AM EDT Office Visit [facility] Hematology Oncology [address] [place] [phone] Quinn Seals MD [address] [place] [address] documented as of this encounter Visit Diagnoses Not on filedocumented in this encounter Care Teams Airborne Operations Relationship Specialty Start Date End Date Yolanda Parrish PA [address] [address] PCP - General Primary Care 08/03/24 documented as of this encounter
--- OUTSIDE RECORDS SUMMARY | 2025-08-31 08:34 | XMS_ITS | Encounter Summary ---
Author Organization [facility] Address [address] [place] [address] Care Team Providers Care Animal Care Assistant Name Role Phone Yolanda Parrish Primary Care Provider + Encounter Details Date Type Department Care Team (Late st Contact Info) Description 08/08/2025 Telephone Internal Medicine - [place] [address] [place] [phone] Yolanda Parrish PA [address] [place] [address] Social History Tobacco Use Types Packs/Day Years [...] AM EST Office Visit Internal Medicine - [place] [address] [facility] [address] [place] [phone] Yolanda Parrish PA [address] [place] [address] 12/21/2025 10:00 AM EDT Ancillary Procedure [facility] - [facility] [address] [facility] [address] [place] [address] 01/23/2026 8:30 AM EDT Office Visit Vascular Surgery - [place] [address] [facility] [address] [place] [phone] Pelon Joshi MD [address] [place] [phone] 04/07/2026 10:00 AM EDT Office Visit [facility] Hematology Oncology [address] [place] [phone] Quinn Seals MD [address] [place] [address] documented as of this encounter Visit Diagnoses Not on filedocumented in this encounter Care Teams Animal Care Assistant Relationship Specialty Start Date End Date Yolanda Parrish PA [address] [address] PCP - General Primary Care 08/03/24 documented as of this encounter
--- OUTSIDE RECORDS SUMMARY | 2025-08-31 08:34 | XMS_ITS | Clinical Summary ---
Author Organization 175 [facility] Address [address] [place] [address] Phone Care Team Providers Care Watch Inspector Name Role Phone Yolanda Parrish Primary Care Provider + Allergies Active Allergy Reactions Criticality Noted Date Comments Amoxicillin-Pot Clavulanate Swelling 01/10/20 18 Atorvastatin 04/26/2025 Ciprofloxacin Swelling 06/13/2015 Doxycycline 06/13/2015 Pollen Extracts Unknown 05/19/2025 Shellfish Containing Products Unknown 2024 Shrimp Unknown 05/19/2025 Simvastatin Itching 05/03/2021 Medications aspirin 81 mg EC tablet Take 1 tablet (81 mg total) by mouth. Active metroNIDAZOLE (FLAGYL) 500 mg tablet Take 1 tablet (500 mg total) by mouth 2 (two) times a day. 4 Active linaCLOtide (Linzess) 72 mcg capsule Take 1 capsule (72 mcg total) by mouth 1 (one) time each day before breakfast. 30 capsule 3 5 Active fluticasone propionate (FLONASE) 50 mcg/actuation nasal spray Administer 1 spray into each nostril 2 (two) times a day. 16 g 3 5 Active cetirizine (ZyrTEC) 10 mg tablet TAKE 1 TABLET BY MOUTH DAILY NEEDED 90 tablet 3 5 Active allopurinoL (ZYLOPRIM) 100 mg tablet TAKE TWO TABLETS BY MOUTH EVERY DAY 180 tablet 1 5 Active mometasone (ELOCON) 0.1 % creamIndicatio ns:Itching of ear Apply topically 1 (one) time each day. 45 g 3 5 Active blood-glucose meter kitIndications :Type 2 diabetes mellitus with stage 4 chronic kidney disease, without long-term current use of insulin ([facility] V24, [facility] V28) Inject 1 each under the skin 2 (two) times a day. One Touch meter 1 each 5 Active glucose blood test stripIndicatio ns:Type 2 diabetes mellitus with stage 4 chronic kidney disease, without long-term current use of insulin ([facility] V24, [facility] V28) 1 each by Other route 2 (two) times a day. Use One Touch strip 2 times daily to check sugar. 100 each 3 5 Active lancets lancetsIndicat ions:Type 2 diabetes mellitus with stage 4 chronic kidney disease, without long-term current use of insulin ([facility] V24, [facility] V28) 1 each by Other route 2 (two) times a day. Use as instructed 100 each 3 5 Active albuterol HFA (PROAIR HFA ; PROVENTIL HFA ; VENTOLIN HFA) 90 mcg/actuation inhaler INHALE TWO PUFFS BY MOUTH EVERY 6 HOURS NEEDED FOR WHEEZING 1 each 5 Active atorvastatin (LIPITOR) 20 mg tablet TAKE ONE TABLET BY MOUTH EVERY DAY 90 tablet 3 5 Active spironolactone (ALDACTONE) 25 mg tablet TAKE ONE TABLET BY MOUTH EVERY DAY 90 tablet 3 5 Active escitalopram (LEXAPRO) 10 mg tabletIndicati ons:Anxiety TAKE ONE TABLET BY MOUTH EVERY DAY 90 tablet 1 5 Active candesartan-hy droCHLOROthiaz anita (ATACAND HCT) 32-12.5 mg per tablet Take 1 tablet by mouth 1 (one) time each day. 5 Active candesartan (ATACAND) 32 mg tablet Take 1 tablet (32 mg total) by mouth 1 (one) time each day. 2 11/10/20 25 Discontinu ed(Discont inued by another clinician) amLODIPine (NORVASC) 5 mg tablet Take 1 tablet (5 mg total) by mouth 1 (one) time each day. 90 tablet 3 4 08/08/20 Discontinu ed(Discont inued by another clinician) carbamide peroxide (DEBROX) 6.5 % otic solution Administer 5 drops into the right ear 2 (two) times a day for 5 days. 5 mL 5 08/08/20 Active Problems Problem Noted Date Diagnosed Date Palpitations 08/08/2025 Assessment & Plan (08/08/2025 8:12 AM EST): Patient reports these have resolved with diet and exercise. Left carotid stenosis 08/08/2025 Assessment & Plan (08/08/2025 8:13 AM EST): Followed by Dr. Joshi. Has yearly ultrasound to update. Stage 4 chronic kidney disease (CMS/HCC V24, CMS /HCC V28) 04/28/2025 Primary hypertension 08/05/2024 Overview (08/13/2024): [...] scan for further evaluation. Assessment & Plan (08/08/2025 8:09 AM EST): Well-controlled the appointment. Patient also has record of blood pressures with her that show they are controlled at home. Primarily utilizing diet and exercise at this time. Please continue on the candesartan/hydrochlorothiazide 32/12.5 mg p.o. daily as well as a spironolactone 25 mg p.o. daily. Assessment & Plan (02/17/2025 9:17 AM EDT): [...] complication, without long-term current use of insulin ([facility] V24, [facility] V28) 08/05/2024 History of left breast cancer 08/05/2024 Overview (08/05/2024): Mastectomy 2004 Gout 08/05/2024 Anxiety 08/05/2024 Asthma 08/05/2024 Diverticulitis of large inte sissy without perforation or abscess without bleeding 04/05/2024 History of left mastectomy 04/10/2023 Diverticulitis 04/10/2023 Arthritis 04/10/2023 Weight loss 04/10/2023 Hyperlipidemia 03/10/2018 Assessment & Plan (08/08/2025 8:11 AM EST): Will update a lipid panel. She is utilizing atorvastatin 20 mg p.o. daily. Assessment & Plan (02/17/2025 9:17 AM EDT): [...] Encounters Date Type Department Care Team Description 08/08/2025 7:40 AM EST Office Visit [facility] 154 [address] [facility] [address] [place] [address] Jaguar Smith NP Pure hypercholesterolemia (Primary Dx); Primary hypertension; Palpitations; Left carotid stenosis 08/08/2025 Telephone Internal Medicine - [place] [address] [address] Yolanda Parrish PA 08/08/2025 Telephone Internal Medicine - [place] 175 [facility] [address] [place] [address] Yolanda Parrish PA 07/23/2025 9:51 AM EDT - 07/23/2025 10:27 AM EDT Emergency [facility] Emergency [address] [place] [phone] Dillon Zuniga MD Noninfectious otitis externa of right ear, unspecified chronicity, unspecified type (Primary Dx) Discharge Disposition: Home or Self Care 07/19/2025 10:00 AM EDT Office Visit Pulmonology - [place] [address] [address] Fabio Marquez MD Snoring (Primary Dx); Obesity (BMI 30.0-34.9) 07/13/2025 Telephone Internal Medicine [address] [address] Yolanda Parrish PA 07/01/2025 Telephone Internal Medicine [address] [phone] Yolanda Parrish PA 06/16/2025 Telephone Internal Medicine [address] [phone] Yolanda Parrish PA 06/01/2025 10:45 AM EDT Office Visit Internal [address] [phone] Yolanda Parrish PA Primary hypertension (Primary Dx) from Last 3 Months Surgical History Surgery Date Site/Laterality Comments MASTECTOMY Left PROCEDURE:MASTECTOMY BREAST LUMPECTOMY Left PROCEDURE:BREAST LUMPECTOMY;COMMENT:2003 COLONOSCOPY PROCEDURE:COLONOSCOPY;COMMENT:12/2020 OTHER SURGICAL HISTORY PROCEDURE:HYSTERECTOMY Medical History Medical History Date Comments Osteoarthritis DX:Osteoarthriti s;COMMENT:KNEES AND ANKLES HTN (hypertension) DX:HTN (hyper tension) Type 2 diabetes mellitus ( S/HCC V24, [facility]/HCC V28) DX:Type 2 diabetes mellitus (HCC) Hyperlipidemia DX:Hyperlipidemi a Breast cyst, right DX:Breast cys t, right;COMMENT:1999- STABLE Breast cancer (CMS/HCC V24, [facility]/HCC V28) DX:Breast cancer (HCC) Vitamin D deficiency [...] 0.5 Q uit: 01/18/1999 Smokeless Tobacco: Never Tobacco [...] Sign Reading Time Taken Comments Blood Pressure 128/60 08/08/2025 7:47 AM EST Pulse 68 08/08/2025 7:47 AM EST Temperature 36.5 C (97.7 F) 07/23/2025 9:45 AM EDT Respiratory Rate 18 07/23/2025 9:45 AM EDT Oxygen Saturation 98% 08/08/2025 7:47 AM EST Inhaled Oxygen Concentration - - Weight 92.5 kg (204 lb) 08/08/2025 7:47 AM EST Height 167.6 cm (5' 6 ) 08/08/2025 7:47 AM EST Body Mass Index 32.93 08/08/2025 7:47 AM EST Plan of Treatment Upcoming Encounters Date Type Department Care Team (Late st Contact Info) Description 09/01/2025 10:30 AM EST Office Visit Internal Medicine - [place] [facility] 200 [place] [phone] Yolanda Parrish PA [address] [place] [address] 12/21/2025 10:00 AM EDT Ancillary Procedure [facility] 101 [address] [facility] 101 [place] [phone] 01/23/2026 8:30 AM EDT Office Visit Vascular Surgery - [place] 300 [facility] [address] [place] [phone] Peoln Joshi MD [address] [place] [phone] 04/07/2026 10:00 AM EDT Office Visit [facility] Hematology Oncology [address] [place] [address] Quinn Seals MD [address] [place] [address] Health Maintenance Due Date Last Done Comments Diabetes: Annual Foot Exam 1952 Diabetes: Annual Retina Eye Exam 1950 Pneumococcal Vaccine: 50+ Years (1 of 2 - PCV) 1961 Zoster Vaccines (1 of 2) 1961 RSV Immunization Adult Patients (1 - 1-dose 75+ series) 2017 Medicare Annual Wellness Visit 08/03/2024 Social Influencers of Health Screening 08/03/2024 Depression Screening 2024 COVID-19 Vaccine ( season) 2025 07/03/2023, 09/04/2022, 02/28/2022, Additional history exists Influenza Vaccine (#1) 2025 07/13/2021 Falls Risk Assessment 10/15/2025 10/15/2024 Diabetes: Blood Sugar Control Test (HGBA1C) 10/29/2025 04/28/2025, 01/27/2024 Diabetes: Annual GFR (Glomerular Filtration Rate) 04/26/2026 04/26/2025, 02/24/2025, 12/13/2024, Additional history exists Hypertension/CHF/CAD Annual BMP Blood Test 04/26/2026 04/26/2025, 02/24/2025, 12/13/2024, Additional history exists Diabetes: Annual Urine Albumin-Creatinine Ratio (uACR) 06/28/2026 06/28/2025 Cholesterol Screening (Lipid Panel) 01/26/2029 01/27/2024 DTaP,Tdap,and [...] Procedure Name Priority Date/Time Associated Diagnosis Comments EXTERNAL CLINICAL LAB Routine 08/27/2025 3:16 PM EST HOME SLEEP TEST Routine 07/18/2025 4:12 PM EDT Other fatigue HEMOGLOBIN A1C Routine 04/28/2025 3:17 PM EDT Type 2 diabetes mellitus with stage 4 chronic kidney disease, without long-term current use of insulin ([facility] V24, [facility] V28) BASIC METABOLIC PANEL STAT 04/26/2025 5:08 PM EDT MEGHNA DEXA AXIAL SKELETON Routine 06/08/2021 11:37 AM EDT Asymptomatic menopausal state from Last 3 Months or Most Recently Relevant to Health Maintenance Results * External clinical lab (08/27/2025 3:16 PM EST) Historical Provider LAB BLOOD ORDERABLES Anais l Result * Home sleep test (07/18/2025 4:12 PM EDT) Fabio Marquez MD SLEEP CENTER ORDERABLES Anais l Result * Hemoglobin A1c (04/28/2025 3:17 PM EDT) Hemoglobin A1C 6.4 <6.5 % LAB CHEMISTRY METHOD 04/28/2025 9:56 PM EDT [facility] Mean Bld Glu Estim. 137 mg/dL LAB CHEMISTRY METHOD 04/28/2025 9:56 PM [facility] Blood Venous blood specimen / Unknown Venipuncture / Unknown 04/28/2025 3:17 PM EDT 04/28/2025 3:17 PM EDT us Tara Saravia NP LAB BLOOD ORDERABLES Final Resul t [facility] [address] [place] [address], [place] [phone] * (ABNORMAL) Basic metabolic panel (04/26/2025 5:08 PM EDT) Sodium 135 133 - 145 mmol/L LAB CHEMISTRY METHOD 04/26/2025 5:51 PM [facility] Potassium 5.3 3.5 - 5.5 mmol/L LAB CHEMISTRY METHOD 04/26/2025 5:51 PM [facility] Chloride 105 96 - 110 mmol/L LAB CHEMISTRY METHOD 04/26/2025 5:51 PM [facility] CO2 27 21 - 32 mmol/L LAB CHEMISTRY METHOD 04/26/2025 5:51 PM [facility] Anion Gap 3 3 - 11 LAB CHEMISTRY METHOD 04/26/2025 5:51 PM [facility] Glucose 113(H) 70 - 100 mg/dL LAB CHEMISTRY METHOD 04/26/2025 5:51 PM [facility] BUN 24 5 - 25 mg/dL LAB CHEMISTRY METHOD 04/26/2025 5:51 PM [facility] Creatinine 1.81(H) 0.50 - 1.10 mg/dL LAB CHEMISTRY METHOD 04/26/2025 5:51 PM [facility] eGFR 28(L) >=60 mL/min/1. 73m2 LAB CHEMISTRY METHOD 04/26/2025 5:51 PM EDT [facility] Comment:Calculation based on the Chronic Kidney Disease Epidemiology Collaboration (CKD-EPI) equation refit without adjustment for race. BUN/Creatinine Ratio 13.3 LAB CHEMISTRY METHOD 04/26/2025 5:51 PM EDT [facility] Calcium 9.3 8.5 - 10.5 mg/dL LAB CHEMISTRY METHOD 04/26/2025 5:51 PM EDT [facility] Blood Venous blood specimen / Unknown Venipuncture / Unknown 04/26/2025 5:08 PM EDT 04/26/2025 5:25 PM EDT us Dillon Zuniga MD LAB BLOOD ORDERABLES Final Result [facility] [address] [place] [address], * MEGHNA DEXA AXIAL SKELETON (06/08/2021 11:37 AM EDT) Anatomical Region Laterality Modality Mammography 06/08/2021 10:4 0 AM EDT Narrative 06/08/2021 11:37 AM EDT [facility] Diagnostic Imaging Department [address] [place] [address] Patient: SALVADORSTEVE D.O.B./Age/Sex: 1940 - 80 - F Unit#: [id number] Location/Status: SPDIMAM/REG CLI Mnemonic/Ordering Site: MAMDEXAAX/SPMAM Ordering Physician: DARLEEN RUIZ CNM Meghna Dexa [...] probability of hip fracture of 0.3%. Code 50308 Dictating Physician: GEGE JOSEPH MD Electronically Signed by: GEGE JOSEPH MD Dic Date/Time: 06/08/21 113 Sign date/Time: 06/08/211136 Procedure Note Gege Joseph MD - 09/25/2022 [facility] Diagnostic Imaging Department [address] [place] [id number] Patient: STEVE FRANCO /Age/Sex: 1940 - 80 - F Unit#: [id number] Location/Status: SPDIMA/REG CLI [facility] Ordering Physician: DARLEEN RUIZ CNM [facility] Dexa Axial Skeleton - 06/08/211131 HISTORY: The [...] density of the femurs bilaterally is 1.309 gm/dk0ahyud is 130% of that of young normals [...] probability of hip fracture of 0.3%. Code 92124 Dictating Physician: GEGE JOSEPH MD Electronically Signed by: GEGE JOSEPH MD Dic Date/Time: 06/08/211135 Sign date/Time: 06/08/211136 Darleen Ruiz CNM IMG BI PROCEDURES Final Resul t from Last [...] currently active code status orders. Care Teams Watch Inspector Relationship Specialty Start Date End Date Yolanda Parrish PA [address] [address] PCP - General Primary Care 08/03/24
--- OUTSIDE RECORDS SUMMARY | 2025-08-31 08:34 | XMS_ITS | Clinical Summary ---
Author Organization [facility] Address [address] [place] [address] Care Team Providers Care Any Commodity Buyer Name Role Phone Steven Olson MD Primary [...] age to complete this topic Care Teams Any Commodity Buyer Relationship Specialty Start Date End Date Steven Olson MD PCP - General Internal Medicine 03/27/22
--- OUTSIDE RECORDS SUMMARY | 2025-08-31 08:34 | XMS_ITS | Clinical Summary ---
Author Organization [facility], Address [address] [place] [address] Phone Care Team Providers Care Life Science Teacher Name Role Phone Steven Olson MD Primary Care Provider [phone] Allergies No known active allergies Medications aspirin [...] stage II-A infiltrating ductal CA; ER and NV (+) Morbid obesity 01/27/2022 01/27/2022 Tubular adenoma, no ICD-O subtype 01/27/2022 01/27/2022 Encounters Date Type Department Care Team Description 07/11/2025 4:00 PM EDT Office Visit [facility] [address] [place] [address] Abram Bhatti MD Stage 3 chronic kidney disease, not otherwise specified (HCC) (Primary Dx); Hypertension 06/28/2025 Orders Only [facility] [address] [place] [address] Dayna Samuel [place] Hypertension (Primary Dx); Stage 3 chronic kidney disease, not otherwise specified (HCC); Albuminuria, not otherwise specified from Last 3 Months Family History Medical [...] Visit [facility] [place], [address] [place] [phone] Abram Bhatti MD [address] [place] [phone] Health Maintenance Due Date Last Done Comments [...] NOT USE Routine 06/28/2025 8:18 AM EDT LAB ACADEMIC TUTOR Routine 09/08/2017 12:00 AM EST from Last 3 Months or Most Recently Relevant to Health Maintenance Results * Protein, Total, Random Urine w/Creatinine (Protein/Creat Ratio) (06/28/2025 8:19 AM EDT) Creatinine, Ur 132.8 Not Estab. mg/dL [facility] Protein, Ur 23.0 Not Estab. mg/dL [facility] Urine Protein/Creatin ine Ratio 173 0 - 200 mg/g creat [facility] 06/28/2025 8:19 AM EDT 06/28/2025 us Abram Bhatti MD LAB URINE ORDERABLES Final Result [facility] [address] [place] [address] * (ABNORMAL) CBC and Differential (06/28/2025 8:19 AM EDT) WBC 4.7 3.4 - 10.8 x10E3/uL [facility] RBC 3.45(L) 3.77 - 5.28 x10E6/uL [facility] Hemoglobin 10.4(L) 11.1 - 15.9 g/dL [facility] Hematocrit 35.7 34.0 - 46.6 % [facility] MCV 104(H) 79 - 97 fL [facility] MCH 30.1 26.6 - 33.0 pg [facility] MCHC 29.1(L) 31.5 - 35.7 g/dL [facility] RDW 13.9 11.7 - 15.4 % [facility] Platelets 182 150 - 450 x10E3/uL [facility] Neutrophils Relative 43 Not Estab. % [facility] Lymphocytes Relative 40 Not Estab. % [facility] Monocytes 12 Not Estab. % [facility] Eosinophils Relative 4 Not Estab. % [facility] Basophils Relative 1 Not Estab. % [facility] Neutrophils Absolute 2.0 1.4 - 7.0 x10E3/uL [facility] Lymphocytes Absolute 1.9 0.7 - 3.1 x10E3/uL [facility] Monocytes Absolute 0.5 0.1 - 0.9 x10E3/uL [facility] Eosinophils Absolute 0.2 0.0 - 0.4 x10E3/uL [facility] Basophils Absolute 0.0 0.0 - 0.2 x10E3/uL [facility] Immature Granulocytes 0 Not Estab. % [facility] Immature Grans (Absolute) 0.0 0.0 - 0.1 x10E3/uL [facility] Blood Venous blood / Unknown 06/28/2025 8:19 AM EDT 06/28/2025 Abram Bhatti MD LAB BLOOD ORDERABLES Final Result Performing Organization Address City/[facility]/ZIP Co de Phone Number [facility] [address] [place] [address] * Urine Immunofixation Electrophoresis (06/28/2025 8:18 AM EDT) KALEY Interpretation:U Comment [facility] Comment: The immunofixation pattern appears unremarkable. Evidence of monoclonal protein is not apparent. Urine 06/28/2025 8:18 AM EDT 06/28/2025 Abram Bhatti MD LAB URINE ORDERABLES Final Result Performing Organization Address City/[facility]/ZIP Co de Phone Number [facility] [address] [place] [address] * Microscopic Examination (06/28/2025 8:18 AM EDT) WBC, Urine None seen 0 - 5 /hpf [facility] RBC, Urine None seen 0 - 2 /hpf [facility] Squamous Epithelial, Urine 0-10 0 - 10 /hpf [facility] Casts None seen None seen /lpf [facility] Bacteria, Urine None seen None seen/Few [facility] 06/28/2025 8:18 AM EDT 06/28/2025 Abram Bhatti MD LAB MICROBIOLOGY - GENERAL ORDERABLES Final Result Performing Organization Address City/[facility]/ZIP Co de Phone Number [facility] [address] [place] [address] * (ABNORMAL) Serum free light chains (06/28/2025 8:18 AM EDT) Free [place] Lt Chains, S 35.3(H) 3.3 - 19.4 mg/L [facility] Free Lambda Lt Chains, S 30.5(H) 5.7 - 26.3 mg/L [facility] Free [place]/Lambda Ratio 1.16 0.26 - 1.65 [facility] Blood Venous blood / Unknown 06/28/2025 8:18 AM EDT 06/28/2025 Abram Bhatti MD LAB BLOOD ORDERABLES Final Result Performing Organization Address City/[facility]/ZIP Co de Phone Number [facility] [address] [place] [address] * (ABNORMAL) Urine Albumin / Creatinine Ratio (06/28/2025 8:18 AM EDT) Creatinine, Ur 134.1 Not Estab. mg/dL [facility] Albumin, Urine 76.5 Not Estab. ug/mL [facility] Albumin/Creatin ine Ratio 57(H) 0 - 29 mg/g creat [facility] Comment: Normal: 0 - 29 Moderately increased: 30 - 300 Severely increased: >300 Urine Urine specimen obtained by clean catch procedure / Unknown 06/28/2025 8:18 AM EDT 06/28/2025 us Abram Bhatti MD LAB URINE ORDERABLES Final Result [facility] [address] [place] [address] * (ABNORMAL) Urinalysis with microscopic (06/28/2025 8:18 AM EDT) Specific [place], Urine 1.016 1.005 - 1.030 [facility] pH Urine 6.0 5.0 - 7.5 [facility] Color, Urine Yellow Yellow [facility] [phone] Appearance Urine Clear Clear [facility] [place] WBC Esterase Urine Negative Negative [facility] Protein, Ur 1+(A) Negative/Tra ce [facility] Glucose, Ur Negative Negative [facility] Ketones, Urine Negative Negative [facility] [place] Blood Urine Negative Negative [facility] [phone] Bilirubin Urine Negative Negative [facility] [place] Urobilinogen Urine 0.2 0.2 - 1.0 mg/dL [facility] Nitrite, Urine Negative Negative [facility] [place] Microscopic Examination See below: [facility] Comment:Microscopic was alia cated and was performed. Urine Urine specimen obtained by clean catch procedure / Unknown 06/28/2025 8:18 AM EDT 06/28/2025 Abram Bhatti MD LAB URINE ORDERABLES Final Result [facility] [address] [place] [address] * Immunofixation, Serum (06/28/2025 8:18 AM EDT) Pathologist [facility] IgG 1,229 586 - 1,602 mg/dL [facility] IgA 315 64 - 422 mg/dL [facility] IgM 35 26 - 217 mg/dL [facility] Immunofixation Result, Serum Comment [facility] Comment: The immunofixation pattern appears unremarkable. Evidence of monoclonal protein is not apparent. Blood Venous blood / Unknown 06/28/2025 8:18 AM EDT 06/28/2025 Abram Bhatti MD LAB BLOOD ORDERABLES Final Result Performing Organization Address City/[facility]/ZIP Co de Phone Number [facility] [address] [place] [address] * (ABNORMAL) PTH, intact (06/28/2025 8:18 AM EDT) Pathologist [facility] PTH 79(H) 15 - 65 pg/mL [facility] Venous blood / Unknown 06/28/2025 8:18 AM EDT 06/28/2025 Abram Bhatti MD LAB BLOOD ORDERABLES Final Result [facility] [address] [place] [address] * (ABNORMAL) Renal Function Panel (06/28/2025 8:18 AM EDT) Pathologist [facility] Glucose 92 70 - 99 mg/dL [facility] BUN 24 8 - 27 mg/dL [facility] Creatinine 1.35(H) 0.57 - 1.00 mg/dL [facility] eGFR CKD-EPI CR 2020 39(L) >59 mL/min/1.7 3 [facility] BUN/Creatinine Ratio 18 12 - 28 [facility] Sodium 136 134 - 144 mmol/L [facility] Potassium 5.0 3.5 - 5.2 mmol/L [facility] Chloride 103 96 - 106 mmol/L [facility] Bicarbonate (CO2) 22 20 - 29 mmol/L [facility] Calcium 9.1 8.7 - 10.3 mg/dL [facility] Albumin 4.1 3.7 - 4.7 g/dL [facility] Phosphorus 3.1 3.0 - 4.3 mg/dL [facility] Blood Venous blood / Unknown 06/28/2025 8:18 AM EDT 06/28/2025 Abram Bhatti MD LAB BLOOD ORDERABLES Final Result [facility] [address] [place] [phone] * Lab Leather Grader (09/08/2017 12:00 AM EST) Hemoglobin A1C 6.6 % [facility]2017 [facility] Conversion LAB [id number] LICITED RESULTS Final Result [facility] from Last 3 Months or Most Recently Relevant to Health Maintenance Insurance [place] Care Teams Life Science Teacher Relationship Specialty Start Date End Date Steven Olson MD [address] [place] [address] PCP - General 08/03/19
--- OUTSIDE RECORDS SUMMARY | 2025-08-31 08:34 | XMS_ITS | Encounter Summary ---
Author Organization [facility], Address [address] [facility] [address] Phone Care Team Providers Care Solar Engineer Name Role Phone Steven Olson MD Primary Care Provider [phone] Encounter Details Date Type Department Care Team (Late Contact Info) Description 08/06/2024 Documentation Only [facility] [address] [place] [address] Dayna [place]ARDAN, [place] [address] [place] [address] Social History Tobacco Use Types [...] Visit [facility] [address] [place] [address] Abram Bhatti MD [address] [place] [address] documented as of this encounter Visit Diagnoses Not on filedocumented in this encounter Care Teams Solar Engineer Relationship Specialty Start Date End Date Steven Olson MD [address] [place] [id number] PCP - General 08/03/19 documented as of this encounter
== END 2025-08-31 09:00 | disposition home or self-care (01) ==
LOC: HO.HSMS 08:25
PROVIDERS: PCP Physician Assistant; Visit Provider Psychiatry & Neurology Neurology
DX: R25.1 Tremor, unspecified (principal)
CPT/HCPCS: 99204